=== PATIENT | male | born 1945 | race Caucasian/White ===

== ENCOUNTER 2018-04-21 16:20 | Observation (INO) | payer OTHER, MEDICARE ==
--- NOTE | 2018-04-21 16:43 | PDOC ---
History of Present Illness - General Chief Complaint: CVA/TIA Stated Complaint: RULE OUT CVA Time Seen by Provider: 04/21/18 16:36 - History of Present Illness Initial Comments: 04/21/18 16:43 Mr. Zen Mcfarland is a 72 yo male w/ pmh of DM and lymphoma (? followed by Dr. Miller) who presents for evaluation of 1 day history of confusion and slurred speech. Family reports they noted slurred speech last night however thought nothing of it. This morning they noticed worsening speech and confusion as he was trying to change the television channels with his recliner control. Patient was also found on the floor although he denies falling or any pain. EMS was called and patient was noted to have increasing slurred speech with left sided facial droop and left arm drip, however symptoms resolved prior to arrival and only slight facial droop remained. Patient back to baseline per family now. The patient denies chest pain, shortness of breath, headache and dizziness. Denies fever, chills, nausea, vomit, diarrhea and constipation. Denies dysuria, frequency, urgency and hematuria. Past History - Past Medical History Allergies/Adverse Reactions: Allergies Allergy/AdvReac Type Severity Reaction Status Date / Time No Known Allergies Allergy Unverified 04/21/18 18:07 Home Medications: Ambulatory Orders Aspirin [ASA -] 81 mg PO DAILY 04/21/18 Clonazepam 0.5 mg PO DAILY 04/21/18 Folic Acid 1 mg PO DAILY 04/21/18 Furosemide [Lasix] 40 mg PO DAILY 04/21/18 Hydrochlorothiazide [Hctz -] 25 mg PO DAILY 04/21/18 Nebivolol HCl [Bystolic] 10 mg PO DAILY 04/21/18 Omeprazole 40 mg PO BID 04/21/18 Sitagliptin Phos/Metformin HCl [Janumet 50-1,000 mg Tablet] 1 tab PO DAILY 04/21 Review of Systems - Review of Systems Comments:: 04/21/18 16:50 GENERAL/CONSTITUTIONAL: No fever or chills. No weakness. HEAD, EYES, EARS, NOSE AND THROAT: No change in vision. No ear pain or discharge. No sore throat. CARDIOVASCULAR: No chest pain or shortness of breath RESPIRATORY: No cough, wheezing, or hemoptysis. GASTROINTESTINAL: No nausea, vomiting, diarrhea or constipation. GENITOURINARY: No dysuria, frequency, or change in urination. MUSCULOSKELETAL: No joint or muscle swelling or pain. No neck or back pain. SKIN: No rash NEUROLOGIC: +Confusion, slurred speech, and facial droop as described. ENDOCRINE: No increased thirst. No abnormal weight change HEMATOLOGIC/LYMPHATIC: No anemia, easy bleeding, or history of blood clots. ALLERGIC/IMMUNOLOGIC: No hives or skin allergy. *Physical Exam - Physical Exam Comments: 04/21/18 16:50 GENERAL: Awake, alert, and fully oriented, in no acute distress HEAD: +Slight facial droop noted. No signs of trauma, normocephalic, atraumatic EYES: PERRLA, EOMI, sclera anicteric, conjunctiva clear ENT: Auricles normal inspection, hearing grossly normal, nares patent, oropharynx clear without exudates. Moist mucosa NECK: Normal ROM, supple, no lymphadenopathy, JVD, or masses LUNGS: No distress, speaks full sentences, clear to auscultation bilaterally HEART: Regular rate and rhythm, normal S1 and S2, no murmurs, rubs or gallops, peripheral pulses normal and equal bilaterally. ABDOMEN: Soft, nontender, normoactive bowel sounds. No guarding, no rebound. No masses EXTREMITIES: Normal inspection, Normal range of motion, no edema. No clubbing or cyanosis. NEUROLOGICAL: Cranial nerves II through XII grossly intact. Normal speech, normal gait, no focal sensorimotor deficits SKIN: Warm, Dry, normal turgor, no rashes or lesions noted. NIH Stroke Scale - Last Known Well Date/Time & Onset Date Last Known Well: 04/20/18 Time Last Known Well: 22:30 - Initial Evaluation Level of consciousness: Alert Ask patient the month and their age: Answers both correctly Ask patient to open & close eyes; make fist and let go: Obeys both correctly Best gaze (horizontal eye movement): Normal Visual field testing: No visual field loss Facial paresis (Show teeth/raise eyebrows/close eyes tight): Minor paralysis ( flattened nasolabial fold, asymmetry on smiling) Motor Function: Left Arm: Normal Motor Function: Right Arm: Normal (extends arm 90 (or 45) degrees for 10 seconds without drift Motor Function: Left Leg: Normal (extends leg 30 degrees for 5 seconds without drift) Motor Function: Right Leg: Normal (extends leg 30 degrees for 5 seconds without drift) Limb Ataxia: No ataxia Sensory(Use pinprick test arms,legs,trunk,face/side to side): Normal Best language (Describe picture, name items, read sentences): No Aphasia Dysarthria (read several words): Normal articulation Extinction and Inattention: No abnormality - Total Score NIH Stroke Scale Score: 1 tPA Exclusion checklist 3-4.5h - Time Elapsed Date last known well: 04/20/18 Time last known well: 22:30 Elaspsed time: Day(s) and 19 Hour(s) and 52 Minutes - Thrombolytic Therapy Candidate Is patient eligible for thrombolytic therapy: No - Exclusion Criteria 3-4.5 hr SBP greater than 185 or DBP greater than 110mmHg despite tx: No Recent IC/spinal surgery,head trauma or stroke<3mos.: No Hx IC hemorrhage, IC neoplasm, AV malformation or aneurysm: No Active internal bleeding: No Blding diathesis(low plt ct, inc PTT,INR>1.7 or use of NOAC): No Symptoms suggest subarachnoid hemorrhage: No CT demonstrates multilobar infarct(>1/3 cerebral hemiphere): No Arterial puncture at noncompressible site in previous 7 days: No Blood glucose concentration less than 50mg/dL (2.7mmol/L): No - Relative Exclusion Criteria 3-4.5 hr Life expectancy <1 yr or severe co-morbid illness: No : No Patient/family refused: No Rapid improvement: Yes Stroke severity too mild: Yes Recent acute NM (w/in previous 3 months): No Seizure at onset with postictal residual neuro impairments: No Major surgery or serious trauma w/in previous 14 days: No Recent GI or hemorrhage (w/in previous 21 days): No - Add'l Relative Exclusion 3-4.5 hr Age > 80: No Hx of both diabetes AND prior ischemic stroke: No Taking an oral anticoagulant regardless of INR: No NIHSS >25: No - Ineligibility reason(s) Reasons No tPA given: Outside of window - delayed arrival Critical Care Time/[facility] Note - Medical Decision Making Note: 04/21/18 17:16 Mr. Zaldivar is a 72 yo male w/ pmh as described who presents for evaluation of symptoms concerning for CVA vs. TIA. Patient reportedly back to baseline at evaluation however concern for TIA prompted admission for Neurological workup. Will continue with evaluation and admit for further workup. *DC/Admit/Observation/Transfer Diagnosis at time of Disposition: TIA (transient ischemic attack) - Discharge Dispostion Decision to Admit order: Yes - Referrals - Patient Instructions - Post Discharge Activity
--- NOTE | 2018-04-21 17:10 | PDOC ---
Attending Attestation - Resident Resident Name: Robe Gutierrez - ED Attending Attestation I have performed the following: I have examined & evaluated the patient, The case was reviewed & discussed with the resident, I agree w/resident's findings & plan, Exceptions are as noted - HPI HPI: 04/21/18 17:09 72 yo male developed slurred speech and left facial droop about 20 hours ago.The family feels he is back to baseline now - Physicial Exam PE: 04/22/18 01:33 wnwd 72 yo male who was confused YESTERDAY with left facial droop,slurred speech and confusion. 04/22/18 01:37 head ncat eyes oscar eomi neck supple,no jvd lungs cta b/l cvs [id number] abd nontender ext no pitting edema neuro axox3,motor strength 5/5, b/l, no extremity drift in arms or legs,no field cut, no neglect,sensation intact. Only mild left facial droop - Medical Decision Making 04/22/18 01:39 ct scan head :no bleed,no infarct,no mass, + cerebral atrophy ct scan c spine :no fracture,severe degenerative arthritis 04/22/18 01:40 IMP TIA ,pt admitted for further neurology eval and brain MRI
[2018-04-21] MEDS: SODIUM CHLORIDE 1,000 ML IV SCH (17:17)
[2018-04-21 17:59] LABS: BASO % 0.3 % (0-2.0); EOS % 3.2 % (0-4.5); HEMATOCRIT 36.7 % (35.4-49); HEMOGLOBIN 12.8 GM/dL (11.7-16.9); LYMPH % 24.8 % (8-40); MCH 31.7 pg (25.7-33.7); MCHC 34.8 g/dl (32.0-35.9); MEAN CELL VOLUME 90.9 fl (80-96); MEAN PLT VOLUME 9.9 fl (7.5-11.1); MONO % 13.6 % (3.8-10.2); NEUT % 58.1 % (42.8-82.8); PLATELET COUNT 59 K/MM3 (134-434); RBC 4.04 M/mm3 (4.00-5.60); RDW 14.4 % (11.9-15.9); WHITE BLOOD COUNT 3.1 K/mm3 (4.0-10.0)
[2018-04-21 18:19] LABS: INR 1.31 (0.83-1.09); PROTHROMBIN TIME (PATIENT) 15.5 SEC (9.7-13.0)
[2018-04-21 18:43] LABS: ALBUMIN 2.9 g/dl (3.4-5.0); ALK PHOS 150 U/L (45-117); ANION GAP 8 MMOL/L (8-16); BLOOD UREA NITROGEN 13 mg/dL (7-18); CALCIUM 8.4 mg/dL (8.5-10.1); CHLORIDE 106 mmol/L (98-107); CHOLESTEROL 142 mg/dL (50-200); CO2 26 mmol/L (21-32); CREATININE 0.8 mg/dL (0.55-1.3); GLUCOSE,RANDOM 149 mg/dL (74-106); HDL CHOLESTEROL 46 mg/dL (40-60); POTASSIUM 4.1 mmol/L (3.5-5.1); SGOT/AST 66 U/L (15-37); SGPT/ALT 35 U/L (13-61); SODIUM 141 mmol/L (136-145); TOT PROT 6.5 g/dl (6.4-8.2); TRIGLYCERIDES 132 mg/dL (0-150)
[2018-04-21 18:50] LABS: URINE APPEARANCE CLEAR; URINE BILIRUBIN NEGATIVE (<2.0 mg/dL); URINE COLOR YELLOW; URINE GLUCOSE (UA) NEGATIVE (NEGATIVE); URINE KETONE NEGATIVE (NEGATIVE); URINE LEUK ESTERASE NEGATIVE (NEGATIVE); URINE NITRITE NEGATIVE (NEGATIVE); URINE PROTEIN NEGATIVE (NEGATIVE)
[2018-04-21] MEDS ORDERED: SENNOSIDES 8.6MG TABLET (FP) PO PRN (21:53)
[2018-04-21] MEDS ORDERED: DOCUSATE SODIUM 100 MG CAPSULE (FP) PO PRN (21:53)
[2018-04-21] MEDS: NEBIVOLOL 10 MG TABLET (FP) PO SCH (23:19)
[2018-04-21] MEDS: INSULIN SLIDING SCALE (NOVOLOG) 1 VIAL SQ SCH (23:20)
[2018-04-21] MEDS: PANTOPRAZOLE 40 MG TABLET (FP) PO SCH (23:20)
--- NOTE | 2018-04-21 23:34 | HP ---
Admitting History and Physical - Primary Care Physician PCP: Fredy Goins - Admission Chief Complaint: Altered mental status History of Present Illness: 72 year old M with h/o HTN, DMII, Lymphoma (diagnosed in 2008, f/b Dr. Miller), present to ED at the urging of this family due to altered mental status. reports symptoms began overnight as mild confusion and slurred speech, however, by morning, pt was noted to be more altered associated with impaired gait and left sided facial droop. during the course of the day, the patient walked outside with and sustained a fall resulting in facial and knee injuries. The was unable to assist patient to standing position and flogged down a passerby to help him back into his house. His family took him into urgent care and pt was directed to ED with assistance from EMS for urgent evaluation. Pt was seen by neuro, however, he was not a TPA candidate due to being outside of therapeutic window. Vitals in ED: BP 171/82, Temp 97.0, HR 66bpm, RR 18. Head CT no evidence of acute pathology and C-spine CT with moderate-severe degenerative arthritis with no fracture or acute pathology. Patient now back to baseline and will be observed for 24hrs prior to d/c home. History Source: Patient, Family Member, Significant Other Limitations to Obtaining History: No Limitations - Past Medical History Cardiovascular: Yes: HTN Gastrointestinal: Yes: GERD Psych: Yes: Anxiety Musculoskeletal: Yes: Osteoarthritis Endocrine: Yes: Diabetes Mellitus - Past Surgical History Past Surgical History: Yes: Appendectomy, Cataract Removal Additional Past Surgical History: right rotator cuff repair - Smoking History Smoking history: Never smoked Have you smoked in the past 12 months: No - Alcohol/Substance Use Hx Alcohol Use: No History of Substance Use: reports: None - Social History Usual Living Arrangement: Yes: With Spouse ADL: Independent Occupation: retired History of Recent Travel: No Home Medications - Allergies Allergies/Adverse Reactions: Allergies Allergy/AdvReac Type Severity Reaction Status Date / Time No Known Allergies Allergy Unverified 04/21/18 18:07 - Home Medications Home Medications: Ambulatory Orders Aspirin [ASA -] 81 mg PO DAILY 04/21/18 Clonazepam 0.5 mg PO DAILY 04/21/18 Folic Acid 1 mg PO DAILY 04/21/18 Furosemide [Lasix] 40 mg PO DAILY 04/21/18 Hydrochlorothiazide [Hctz -] 25 mg PO DAILY 04/21/18 Nebivolol HCl [Bystolic] 10 mg PO DAILY 04/21/18 Omeprazole 40 mg PO BID 04/21/18 Sitagliptin Phos/Metformin HCl [Janumet 50-1,000 mg Tablet] 1 tab PO DAILY 04/21 Family Disease History - Family Disease History Other Family History: non-contributary Review of Systems - Review of Systems Constitutional: reports: No Symptoms Eyes: reports: No Symptoms HENT: reports: Mouth Swelling (hit upper lip d/t fall) Neck: reports: No Symptoms Cardiovascular: reports: No Symptoms Respiratory: reports: No Symptoms Gastrointestinal: reports: No Symptoms Genitourinary: reports: No Symptoms Breasts: reports: No Symptoms Reported Musculoskeletal: reports: No Symptoms Integumentary: reports: No Symptoms Neurological: reports: Change in Speech, Confusion, Dizziness, Incoordination, Unsteady Gait Endocrine: reports: No Symptoms Hematology/Lymphatic: reports: No Symptoms Psychiatric: reports: Anxiety Physical Examination Vital Signs: Vital Signs Temperature 97.0 F L 04/21/18 16:20 Pulse Rate 66 04/21/18 16:20 Respiratory Rate 18 04/21/18 16:20 Blood Pressure 171/82 H 04/21/18 16:20 O2 Sat by Pulse Oximetry (%) 100 04/21/18 16:20 Constitutional: Yes: Well Nourished, No Distress, Calm, Other Eyes: Yes: Conjunctiva Clear, PERRL HENT: Yes: Atraumatic, Normocephalic Neck: Yes: Supple, Trachea Midline Cardiovascular: Yes: Regular Rate and Rhythm Respiratory: Yes: Regular, CTA Bilaterally Gastrointestinal: Yes: Soft, Abdomen, Obese, Hypoactive Bowel Sounds ...Rectal Exam: Yes: Deferred Musculoskeletal: Yes: WNL Extremities: Yes: WNL Edema: No Peripheral Pulses WNL: Yes Peripheral Pulses: Left Radial: 2+, Right Radial: 2+, Left Doralis Pedis: 2+, Right Dorsalis Pedis: 2+ Integumentary: Yes: WNL Neurological: Yes: Alert, Oriented ...Motor Strength: WNL Psychiatric: Yes: Oriented Labs: CBC, BMP 04/21/18 16:50 04/21/18 16:50 Imaging - Results Cat Scan: Report Reviewed (Head CT 04/21 Impression: no evidence of acute pathology), Image Reviewed, Other (C-spine CT 04/21 Impression: moderate-severe degenerative arthritis with no fracture or acute pathology.) Problem List - Problems (1) DM type 2 (diabetes mellitus, type 2) Assessment/Plan: hold Janumet Start Insulin SS AC and qhs diabetic diet Code(s): E11.9 - TYPE 2 DIABETES MELLITUS WITHOUT COMPLICATIONS Qualifiers: Diabetes mellitus senior living insulin use: without long chain beamer use (2) GERD (gastroesophageal reflux disease) Assessment/Plan: protonix daily Code(s): K21.9 - GASTRO-ESOPHAGEAL REFLUX DISEASE WITHOUT ESOPHAGITIS (3) HTN (hypertension) Assessment/Plan: HCTZ 25mg daily bystolic 10mg qhs lasix 40mg daily f/u echo results Code(s): I10 - ESSENTIAL (PRIMARY) HYPERTENSION (4) DVT prophylaxis Assessment/Plan: heparin SC TID c/w ASA 81mg OOB to chair SCDs Code(s): NCT5239 - (5) TIA (transient ischemic attack) Assessment/Plan: head CT negative and pt back to baseline observe overnight and d/c home in AM if stable follow up carotid doppler studies pt should f/u with neuro and PCP outpt Code(s): G45.9 - TRANSIENT CEREBRAL ISCHEMIC ATTACK, UNSPECIFIED Assessment/Plan DISPO: Full code Bowel regimen with senna and colace Visit type - Emergency Visit Emergency Visit: Yes ED Registration Date: 04/21/18 Care time: The patient presented to the Emergency Department on the above date and was hospitalized for further evaluation of their emergent condition. - New Patient This patient is new to me today: Yes Date on this admission: 04/22/18 - Critical Care Critical Care patient: No
[2018-04-22 01:20] VITALS: BMI 34.7
[2018-04-22] MEDS: ACETAMINOPHEN 325 MG TABLET (FP) PO PRN ×2 (05:17→20:52)
[2018-04-22] MEDS: HEPARIN NA (PORCINE) 5,000 UNITS/ML 1ML VIAL SQ SCH ×3 (05:18→21:01)
[2018-04-22 07:11] LABS: ANION GAP 8 MMOL/L (8-16); BLOOD UREA NITROGEN 12 mg/dL (7-18); CALCIUM 8.6 mg/dL (8.5-10.1); CHLORIDE 110 mmol/L (98-107); CO2 27 mmol/L (21-32); CREATININE 0.8 mg/dL (0.55-1.3); GLUCOSE,RANDOM 119 mg/dL (74-106); MAGNESIUM 1.7 mg/dL (1.8-2.4); PHOSPHOROUS 3.8 mg/dL (2.5-4.9); POTASSIUM 4.1 mmol/L (3.5-5.1); SODIUM 144 mmol/L (136-145)
[2018-04-22] MEDS: INSULIN SLIDING SCALE (NOVOLOG) 1 VIAL SQ SCH ×4 (07:55→21:02)
[2018-04-22] MEDS: ASPIRIN 81 MG CHEWABLE TABLETS PO SCH (09:22)
[2018-04-22] MEDS: HYDROCHLOROTHIAZIDE 25 MG TABLET (FP) PO SCH (09:22)
[2018-04-22] MEDS: PANTOPRAZOLE 40 MG TABLET (FP) PO SCH ×2 (09:22→21:01)
[2018-04-22] MEDS: FOLIC ACID 1 MG TABLET (FP) PO SCH (09:22)
[2018-04-22] MEDS: FUROSEMIDE 40 MG TABLET (FP) PO SCH (09:22)
--- NOTE | 2018-04-22 10:53 | CON.NEURO ---
Consult Consult Specialty:: Neurology Referred by:: Dr. Kali Arreola Reason for Consultation:: Stroke vs. TIA - History of Present Illness Chief Complaint: Altered speech and facial droop History of Present Illness: Daughter called home yesterday and spoke to her father, and found speech difficult to understand. She says that his words were difficult to understand but that they were words, and that he seemed to understand and answer her appropriately. She asked him to read his medication bottle to her and he had difficulty. He then fell down some stairs outside and hit his face and they noticed some swelling vs. drooping of the left side of the face. They think that he's better but daughter does acknowledge that his face is not quite back to baseline. He himself denies any problems, is cantankerous (baseline), and wants to leave. - History Source History Provided By: Patient, Family Member, Medical Record Limitations to Obtaining History: Poor Historian - Past Medical History Cardio/Vascular: Yes: HTN Gastrointestinal: Yes: GERD Psych: Yes: Anxiety Musculoskeletal: Yes: Osteoarthritis Endocrine: Yes: Diabetes Mellitus - Past Surgical History Past Surgical History: Yes: Appendectomy, Cataract Removal - Alcohol/Substance Use Hx Alcohol Use: No History of Substance Use: reports: None - Smoking History Smoking history: Never smoked Have you smoked in the past 12 months: No - Social History Usual Living Arrangement: With Spouse ADL: Independent Occupation: retired History of Recent Travel: No Home Medications - Allergies Allergies/Adverse Reactions: Allergies Allergy/AdvReac Type Severity Reaction Status Date / Time No Known Allergies Allergy Unverified 04/21/18 18:07 - Home Medications Home Medications: Ambulatory Orders Aspirin [ASA -] 81 mg PO DAILY 04/21/18 Clonazepam 0.5 mg PO DAILY 04/21/18 Folic Acid 1 mg PO DAILY 04/21/18 Furosemide [Lasix] 40 mg PO DAILY 04/21/18 Hydrochlorothiazide [Hctz -] 25 mg PO DAILY 04/21/18 Nebivolol HCl [Bystolic] 10 mg PO DAILY 04/21/18 Omeprazole 40 mg PO BID 04/21/18 Sitagliptin Phos/Metformin HCl [Janumet 50-1,000 mg Tablet] 1 tab PO DAILY 04/21 Family Disease History - Family Disease History Other Family History: non-contributary Physical Exam-Neuro Vital Signs: Vital Signs Temperature 98.5 F 04/22/18 08:59 Pulse Rate 69 04/22/18 08:59 Respiratory Rate 18 04/22/18 08:59 Blood Pressure 142/73 04/22/18 08:59 O2 Sat by Pulse Oximetry (%) 99 04/22/18 08:43 Constitutional: Yes: Well Nourished, Anxious Labs: CBC, BMP 04/21/18 16:50 04/22/18 06:00 INR, PTT INR 1.31 (0.83-1.09) H 04/21/18 16:50 - Neuro Exam Level Of Consciousness: Yes: Alert, Oriented to Person, Oriented to Place, Oriented to Time Eyes: Yes: YVON Speech: WNL Cranial Nerves II-XII Intact: No (slightly decreased left nasolabial fold) DTR's: 0 Left Achilles, 0 Right Achilles, 2+ Left Bicep, 2+ Right Bicep, 2+ Left Tricep, 2+ Right Tricep, 2+ Left Brachioradialis, 2+ Right Brachioradialis Babinski: Absent Response to light touch: Normal Response to pain prick: Normal Motor Strength: 5/5: Left Arm, Right Arm, Left Leg, Right Leg (slight left pronator drift) Gait: Normal NIH Stroke Scale - Initial Evaluation Level of consciousness: Alert Ask patient the month and their age: Answers both correctly Ask patient to open & close eyes; make fist and let go: Obeys both correctly Best gaze (horizontal eye movement): Normal Visual field testing: No visual field loss Facial paresis (Show teeth/raise eyebrows/close eyes tight): Minor paralysis ( flattened nasolabial fold, asymmetry on smiling) Motor Function: Left Arm: Normal Motor Function: Right Arm: Normal (extends arm 90 (or 45) degrees for 10 seconds without drift Motor Function: Left Leg: Normal (extends leg 30 degrees for 5 seconds without drift) Motor Function: Right Leg: Normal (extends leg 30 degrees for 5 seconds without drift) Limb Ataxia: No ataxia Sensory(Use pinprick test arms,legs,trunk,face/side to side): Normal Best language (Describe picture, name items, read sentences): No Aphasia Dysarthria (read several words): Normal articulation Extinction and Inattention: No abnormality - Total Score NIH Stroke Scale Score: 1 Imaging - Results Cat Scan: Report Reviewed, Image Reviewed (CT scan brain, mild atrophy, no acute stroke, cervical spine, degenerative disease.) Assessment/Plan Stroke vs TIA. I actually think that he appears to have persistent left sided weakness though its very mild and subtle. He needs MRI brain and if indeed he had a stroke, would consider changing aspirin to Plavix. Would also get carotid dopplers, and if not done by his cook italian style food recently, echocardiogram and holter monitor. He is quite anxious and will not tolerate MRI without sedation.
[2018-04-22] MEDS ORDERED: ALPRAZolam 0.25 MG TABLET PO SCH (11:00)
[2018-04-22] MEDS ORDERED: clonazePAM 0.5 MG TABLET PO PRN (11:50)
--- NOTE | 2018-04-22 11:51 | PN ---
Progress Note (short form) - Note Progress Note: Family at bedside Events noted No complaints Very anxious No distress Selected Entries 04/22/18 08:59 Temperature 98.5 F Pulse Rate 69 Respiratory 18 Rate Blood Pressure 142/73 Laboratory Tests 04/22/18 04/22/18 06:00 06:00 Sodium 144 Potassium 4.1 Chloride 110 H Carbon Dioxide 27 Anion Gap 8 BUN 12 Creatinine 0.8 Random Glucose 119 H Hemoglobin A1c % 7.4 H Calcium 8.6 Phosphorus 3.8 Magnesium 1.7 L TSH 2.20 D S1 s2 RRR Chin ecchymosis Lungs clear Abd- soft, NT No edema A/P TIA r/o CVA HTN -- MRI today-- give ativan prior to the test echo Carotid doppler telemetry Neurology patrick noted he has an appointment with Field Support Rep this Saturday
--- NOTE | 2018-04-22 12:02 | CONSULT ---
Admitting History and Physical - Primary Care Physician PCP: Mee Quezada - Admission History Source: Patient, Family Member Limitations to Obtaining History: No Limitations - Past Medical History Cardiovascular: Yes: HTN Gastrointestinal: Yes: GERD Psych: Yes: Anxiety Musculoskeletal: Yes: Osteoarthritis Endocrine: Yes: Diabetes Mellitus - Past Surgical History Past Surgical History: Yes: Appendectomy, Cataract Removal Additional Past Surgical History: right rotator cuff repair - Smoking History Smoking history: Never smoked Have you smoked in the past 12 months: No - Alcohol/Substance Use Hx Alcohol Use: No History of Substance Use: reports: None - Social History ADL: Independent Occupation: retired History of Recent Travel: No History - Admission Reason For Visit: TRANSIENT ISCHEMIA ATTACK - Diagnostics X-ray: Report Reviewed CT Scan: Report Reviewed MRI: Pending - General Mental Status: Alert and Oriented, Awake and Alert, Anxious Attention: Intact Ability to Follow Directions: Good Head/Neck Control: WFL - Hearing Hearing: Normal Hearing Aide: No With Patient: No Speech Evaluation - Communication Primary Language: LAO Communication: Yes: Within Normal Limits Oral Expression Ability: Yes: No Impairment - Speech Production Able to Make Needs Known: Yes: WNL Intelligibility: Yes: WNL - Speech Characteristics Voice Loudness: Normal Voice Pitch: Yes: Normal Voice Phonatory-based Quality: Yes: Normal Speech Pattern: Normal Speech Clarity: < 100% Nasal Resonance: Normal Articulation: Yes: Precise Rate of Speech: Intact - Language/Auditory Comprehension Follows: Yes: 2 Stage Simple Commands - Language/Verbal Expression Able to Respond to Simple Queries: Yes: WNL Able to Communicate Wants and Needs: Yes: WNL Functional Communication Status: Yes: WNL Attention: Yes: Intact - Swallow Evaluation/Bedside Assessment Current Nutritional Intake: Regular, Thin Liquids Oral Secretions: Yes: WFL Dentition: Yes: Adequate Facial Symmetry at Rest: Facial Droop Left (left side of lip swollen) Against Resistance Opening: Normal Against Resistance Closing: Normal Pucker Lips: Normal Smile: Normal Lingual Movement: Normal, Symmetric Lingual Speed of Movement: Normal Lingual Movement Strgth Against Opposition: Normal Lingual Movement Characteristics: Normal Velopharyngeal Movement: Normal Laryngeal Elevation: WFL Laryngeal Movement: Able to Palpate Rate of Intake: WFL Bolus Size: WFL Labial Seal: WFL Chewing: WFL Oral Prep Time: WFL A-P Transit: WFL Pocketing: None Timing of Swallow: WFL Coughing/Throat Clear: No Change in Voice: No Recommendations - Speech Evaluation, Impression/Plan Impression: Pt with reported impaired intelligibility/Dyarthria? with spontaneous recovery. Swallowing intact. Oriented.Language intact. Pending MRI - r/o CVA/TIA - Dysphagia Impressions/Plan Swallowing Skills: WFL Dysphagia Impressions: No Impairment *Silent aspiration: cannot be R/O at bedside - Recommendations Diet Consistency: Regular Medication Administration: Whole with water Liquids: Thin Liquids
[2018-04-22] MEDS ORDERED: LORazepam 2 MG/ML SDV VIAL IVPUSH ONE (12:15)
--- NOTE | 2018-04-22 12:34 | ECHO ---
Name: POLO PADILLA Exam:Adult Echocardiogram Study Date: 04/22/2018 08:07 AM Age: 72 yrs Reason For Study: CVA Height: 72 in Weight: 260 lb BSA: 2.4 m2 MMode/2D Measurements & Calculations IVSd: 1.3 cm Ao root diam: 3.4 cm LVIDd: 5.4 cm LA dimension: 4.0 cm LVIDs: 3.1 cm LVPWd: 1.2 cm EDV(Teich): 143.8 ml LVOT diam: 2.0 cm ESV(Teich): 38.2 ml LAV (MOD-bp): 64.4 ml Doppler Measurements & Calculations MV E max miladys: 127.0 cm/sec TR max miladys: 240.3 cm/sec MV A max miladys: 76.6 cm/sec TR max P.1 mmHg MV E/A: 1.7 MV dec time: 0.18 sec Med Peak E' Miladys: 5.7 cm/sec Med E/e': 22.4 Lat Peak E' Miladys: 9.1 cm/sec Lat E/e': 13.9 Procedure A two-dimensional transthoracic echocardiogram with color flow and Doppler was performed. The patient was in normal sinus rhythm during the exam. Left Ventricle The left ventricle is normal in size. Left ventricular systolic function is normal. Ejection Fraction = 60%. Right Ventricle The right ventricle is normal size. The right ventricular systolic function is normal. Atria The left atrium is mildly dilated. Right atrial size is normal. Mitral Valve There is mild mitral annular calcification. There is mild mitral regurgitation. Tricuspid Valve The tricuspid valve is normal. There is mild tricuspid regurgitation. Aortic Valve There is mild aortic sclerosis.;. The aortic valve is not well visualized. The aortic valve opens wel l. No aortic regurgitation is present. Pulmonic Valve The pulmonic valve is not well seen, but is grossly normal. There is no pulmonic valvular regurgitati on. Great Vessels The aortic root is normal size. Pericardium/Pleura There is no pericardial effusion. Interpretation Summary Left ventricular systolic function is normal. The right ventricular systolic function is normal. The left atrium is mildly dilated. There is mild mitral annular calcification. There is mild mitral regurgitation. There is mild tricuspid regurgitation. There is mild aortic sclerosis.; The aortic valve opens well. There is no pericardial effusion. MD Freeman Hernandez 04/22/2018 12:34 PM
--- NOTE | 2018-04-22 12:58 | EKG ---
Test Reason : Blood Pressure : / mmHG Vent. Rate : 065 BPM Atrial Rate : 065 BPM P-R Int : 166 ms QRS Dur : 144 ms QT Int : 492 ms P-R-T Axes : 044 012 008 degrees QTc Int : 511 ms NORMAL SINUS RHYTHM RIGHT BUNDLE BRANCH BLOCK ABNORMAL ECG NO PREVIOUS ECGS AVAILABLE Confirmed by Morteza Manuel ([id number]) on 04/22/2018 12:57:35 PM Referred By: Confirmed By:Morteza Manuel
[2018-04-22] MEDS: SODIUM CHLORIDE 1,000 ML IV SCH (18:08)
[2018-04-22] MEDS ORDERED: LORazepam 2 MG/ML SDV VIAL ONE (19:16)
[2018-04-22] MEDS: NEBIVOLOL 10 MG TABLET (FP) PO SCH (21:01)
[2018-04-22] MEDS ORDERED: ATORVASTATIN CA 10 MG TABLET (FP) PO SCH (22:00)
[2018-04-23] MEDS: HEPARIN NA (PORCINE) 5,000 UNITS/ML 1ML VIAL SQ SCH (06:19)
[2018-04-23 09:37] VITALS: BP 136/67; PULSE 68; TEMP 98.2
[2018-04-23] MEDS: PANTOPRAZOLE 40 MG TABLET (FP) PO SCH (09:39)
[2018-04-23] MEDS: HYDROCHLOROTHIAZIDE 25 MG TABLET (FP) PO SCH (09:39)
[2018-04-23] MEDS: ASPIRIN 81 MG CHEWABLE TABLETS PO SCH (09:39)
[2018-04-23] MEDS: FUROSEMIDE 40 MG TABLET (FP) PO SCH (09:39)
[2018-04-23] MEDS: FOLIC ACID 1 MG TABLET (FP) PO SCH (09:39)
--- NOTE | 2018-04-23 11:41 | DS ---
Physical Examination Vital Signs: Vital Signs Temperature 98.2 F 04/23/18 09:36 Pulse Rate 68 04/23/18 09:36 Respiratory Rate 20 04/23/18 09:36 Blood Pressure 136/67 04/23/18 09:36 O2 Sat by Pulse Oximetry (%) 96 04/23/18 09:45 Constitutional: Yes: No Distress, Calm Cardiovascular: Yes: Regular Rate and Rhythm Respiratory: Yes: CTA Bilaterally Gastrointestinal: Yes: Normal Bowel Sounds, Soft, Abdomen, Obese. No: Tenderness Edema: No Labs: CBC, BMP 04/21/18 16:50 04/22/18 06:00 Discharge Summary Reason For Visit: TRANSIENT ISCHEMIA ATTACK Current Active Problems DM type 2 (diabetes mellitus, type 2) (Acute) DVT prophylaxis (Acute) GERD (gastroesophageal reflux disease) (Acute) HTN (hypertension) (Acute) TIA (transient ischemic attack) (Acute) Hospital Course: Admitted for slurred speech, confusion, facial droop which resolved on its own He was admitted to R/o CVA Seen by Neurology-- CT head negative MRI-- negative Carotid doppler negative Echo normal LVSF Started on Statins Pt is stable to be discharged home, he has follow up with cardiology this Saturday and trevon be seeing his PMD next week Condition: Improved - Instructions Disposition: HOME - Home Medications Comprehensive Discharge Medication List: Ambulatory Orders Aspirin [ASA -] 81 mg PO DAILY 04/21/18 Clonazepam 0.5 mg PO DAILY 04/21/18 Folic Acid 1 mg PO DAILY 04/21/18 Furosemide [Lasix] 40 mg PO DAILY 04/21/18 Hydrochlorothiazide [Hctz -] 25 mg PO DAILY 04/21/18 Nebivolol HCl [Bystolic] 10 mg PO DAILY 04/21/18 Omeprazole 40 mg PO BID 04/21/18 Sitagliptin Phos/Metformin HCl [Janumet 50-1,000 mg Tablet] 1 tab PO DAILY 04/21
== END 2018-04-23 12:31 | disposition home or self-care (01) ==
LOC: JER 16:20 → INTOOBSV 17:18 → JERBED 17:18 → J4S 20:01
PROVIDERS: ADMIT Internal Medicine; ATTEND Internal Medicine
PROC: 3E013GC Introduction of Other Therapeutic Substance into Subcutaneous Tissue, Percutaneous Approach (ICD-10-PCS; principal; 2018-04-21)
DX: G45.9 Transient cerebral ischemic attack, unspecified (principal); I10 Essential (primary) hypertension; K21.9 Gastro-esophageal reflux disease without esophagitis; E11.9 Type 2 diabetes mellitus without complications; Z79.84 Long term (current) use of oral hypoglycemic drugs; M19.90 Unspecified osteoarthritis, unspecified site; F41.9 Anxiety disorder, unspecified; Z85.72 Personal history of non-Hodgkin lymphomas
CPT/HCPCS: 36415; 70450-TC; 70551-TC; 72125-TC; 80048; 80053; 81003; 82465; 82550; 82553; 82962; 83036; 83718; 83721; 83735; 84100; 84443; 84478; 84484; 85025; 85610; 86850; 86900; 86901; 93005; 93010; 93306-TC; 93880-TC; 96372; 99283-25; G0378; J1644; J7030

== ENCOUNTER 2018-07-07 09:46 | Inpatient (IN) | payer OTHER, MEDICARE ==
--- NOTE | 2018-07-07 12:35 | PDOC ---
History of Present Illness - General History Source: Patient, Family Exam Limitations: No Limitations - History of Present Illness Initial Comments: 07/07/18 12:37 The patient is a 72 year old male with a significant PMH of DM, HTN, MS s/p stents, TIA, and low grade lymphoma who presents to the emergency department with slurred speech, confusion, and difficulty walking since 1PM yesterday. Patients family noticed the patient was having difficulty getting dressed, was unable to put his shoes on, and perform simple functions. Family is complaining the patient is still having slurred speech. Patient is disoriented to date at baseline. Patient is on a baby aspirin daily, but denies any other anticoagulants. Patient denies alcohol use. Denies history of UTIs. The patient denies chest pain, shortness of breath, headache and dizziness. Denies fever, chills, nausea, vomit, diarrhea and constipation. Denies dysuria, frequency, urgency and hematuria. Allergies: NKA Past surgical history: stents Social history: No reported alcohol, drug or cigarette use. <Cindy Harding - Last Filed: 07/07/18 14:30> <Anuradha Darling - Last Filed: 07/07/18 14:36> - General Chief Complaint: Altered Mental Status Stated Complaint: SENT BY PCP Time Seen by Provider: 07/07/18 10:26 Past History <Cindy Harding - Last Filed: 07/07/18 14:30> - Past Medical History Anemia: Yes (thrombocytopenia) CVA: Yes (TIA) COPD: No CHF: No Diabetes: Yes GI Disorders: Yes (GERD, gastritiris, hiatal herniz, elevated liver enzymes) HTN: Yes Psychiatric Problems: Yes (anxiety) Seizures: Yes - Surgical History Cholecystectomy: No Lung Surgery: No - Immunization History Immunization Up to Date: No - Suicide/Smoking/Psychosocial Hx Smoking History: Never smoked Have you smoked in the past 12 months: No Information on smoking cessation initiated: No Hx Alcohol Use: No Drug/Substance Use Hx: No Substance Use Type: None Hx Substance Use Treatment: No <Anuradha Darling - Last Filed: 07/07/18 14:36> - Past Medical History Allergies/Adverse Reactions: Allergies Allergy/AdvReac Type Severity Reaction Status Date / Time No Known Allergies Allergy Unverified 04/21/18 18:07 Home Medications: Ambulatory Orders Aspirin [ASA -] 81 mg PO DAILY 04/21/18 Clonazepam 0.5 mg PO DAILY 04/21/18 Folic Acid 1 mg PO DAILY 04/21/18 Furosemide [Lasix] 40 mg PO DAILY 04/21/18 Hydrochlorothiazide [Hctz -] 25 mg PO DAILY 04/21/18 Nebivolol HCl [Bystolic] 10 mg PO DAILY 04/21/18 Omeprazole 40 mg PO BID 04/21/18 Sitagliptin Phos/Metformin HCl [Janumet 50-1,000 mg Tablet] 1 tab PO DAILY 04/21 Atorvastatin Ca [Lipitor] 10 mg PO HS #30 tablet 04/23/18 Atorvastatin Ca [Lipitor] 10 mg PO HS #30 tablet 04/23/18 Review of Systems - Review of Systems Able to Perform ROS?: Yes Comments:: 07/07/18 12:39 ADULT ROS GENERAL/CONSTITUTIONAL: No fever or chills. No weakness. HEAD, EYES, EARS, NOSE AND THROAT: No change in vision. No ear pain or discharge. No sore throat. CARDIOVASCULAR: No chest pain or shortness of breath. RESPIRATORY: No cough, wheezing, or hemoptysis. GASTROINTESTINAL: No nausea, vomiting, diarrhea or constipation. GENITOURINARY: No dysuria, frequency, or change in urination. MUSCULOSKELETAL: No joint or muscle swelling or pain. No neck or back pain. SKIN: No rash NEUROLOGIC: No headache, vertigo, loss of consciousness, or change in strength/ sensation. (+) slurred speech. ENDOCRINE: No increased thirst. No abnormal weight change. HEMATOLOGIC/LYMPHATIC: No anemia, easy bleeding, or history of blood clots. ALLERGIC/IMMUNOLOGIC: No hives or skin allergy. <Cindy Harding - Last Filed: 07/07/18 14:30> *Physical Exam - Vital Signs Last Vital Signs Temp Pulse Resp BP Pulse Ox 98.4 F 74 16 159/57 L 97 07/07/18 09:52 07/07/18 09:52 07/07/18 09:52 07/07/18 09:52 07/07/18 09:52 - Physical Exam Comments: 07/07/18 12:39 ADULT EXAM GENERAL: Awake, alert, and oriented x2. In no acute distress HEAD: No signs of trauma EYES: PERRLA, EOMI, sclera anicteric, conjunctiva clear ENT: Auricles normal inspection, hearing grossly normal, nares patent. Moist mucosa NECK: Normal ROM, supple, no lymphadenopathy, JVD, or masses LUNGS: Breath sounds equal, clear to auscultation bilaterally. No wheezes, and no crackles HEART: Regular rate and rhythm, normal S1 and S2, no murmurs, rubs or gallops ABDOMEN: Soft, nontender, normoactive bowel sounds. No guarding, no rebound. No masses EXTREMITIES: Normal range of motion, no edema. No erythema or tenderness. DP/PT pulses 2+ and symmetric. Warm and well perfused. NEUROLOGICAL: (+) 5/5 strength throughout. (+) Difficulty with finger to nose on the right. (+) Speech is slurred. SKIN: Warm, Dry, normal turgor, no rashes or lesions noted. <Cindy Harding - Last Filed: 07/07/18 14:30> - Vital Signs Last Vital Signs Temp Pulse Resp BP Pulse Ox 98.4 F 74 16 159/57 L 97 07/07/18 09:52 07/07/18 09:52 07/07/18 09:52 07/07/18 09:52 07/07/18 09:52 <Anuradha Darling - Last Filed: 07/07/18 14:36> Moderate Sedation - Procedure Monitoring Vital Signs: Procedure Monitoring Vital Signs Temperature 98.4 F 07/07/18 09:52 Pulse Rate 74 07/07/18 09:52 Respiratory Rate 16 07/07/18 09:52 Blood Pressure 159/57 L 07/07/18 09:52 O2 Sat by Pulse Oximetry (%) 97 07/07/18 09:52 <Cindy Harding - Last Filed: 07/07/18 14:30> - Procedure Monitoring Vital Signs: Procedure Monitoring Vital Signs Temperature 98.4 F 07/07/18 09:52 Pulse Rate 74 07/07/18 09:52 Respiratory Rate 16 07/07/18 09:52 Blood Pressure 159/57 L 07/07/18 09:52 O2 Sat by Pulse Oximetry (%) 97 07/07/18 09:52 <Anuradha Darling - Last Filed: 07/07/18 14:36> ED Treatment Course - LABORATORY CBC & Chemistry Diagram: 07/07/18 12:30 07/07/18 12:20 <Cindy Harding - Last Filed: 07/07/18 14:30> - LABORATORY CBC & Chemistry Diagram: 07/07/18 12:30 07/07/18 12:20 - RADIOLOGY Radiology Studies Ordered: Category Date Time Status HEAD CT (STROKE) [CT] Stat CT Scan 07/07/18 11:08 Ordered CHEST PA & LAT [RAD] Stat Radiology 07/07/18 11:09 Ordered <Anuradha Darling - Last Filed: 07/07/18 14:36> Medical Decision Making - Medical Decision Making 07/07/28 14:[address] Arreola. 07/07/28 12:29 Paged neurology. 07/07/18 14:30 Case d/w Dr. Be, neurology. <Cindy Harding - Last Filed: 07/07/18 14:30> - Medical Decision Making 07/07/18 12:32 72 yo male h/o cad, htn, tia, DM stents, lymphoma here with AMS. per family pt had slurred speech yesterday around 1 pm. difficulty putting on shoes and getting dressed, doing simple tasks . confused. no f/c no cough no fall no c/o chest pain. per family drinks 3 drinks / day. usually sister give him his meds , on ambien and klonopin. on exam pt strength symmetric, CN intact, speech slurred. alert oriented x 2. disoriented toyear. dysmetria to right ,. gait not tested. differential med side effect. infection such as uti, pna. cva ich, electrolyte abnormality. plan labs ekg ua cxr ct head. will likley require nuero eval. and admission r/o cva. 07/07/18 14:35 d/w dr arreola. will admit pt. d/w dr be, who will see pt for nuerology in Ed. recommend MRI. also pt with thrombocytopenia. has been that low for some time. will likely continue aspirin <Anuradha Darling - Last Filed: 07/07/18 14:36> *DC/Admit/Observation/Transfer - Attestations Scribe Attestion: 07/07/18 12:40 Documentation prepared by Cindy Harding, acting as medical care manager for Anuradha Darling MD. <Cindy Harding - Last Filed: 07/07/18 14:30> - Discharge Dispostion Decision to Admit order: Yes <Anuradha Darling - Last Filed: 07/07/18 14:36> Diagnosis at time of Disposition: Altered mental status - Discharge Dispostion Condition at time of disposition: Stable
[2018-07-07 13:03] LABS: BASO % 0.5 % (0-2.0); EOS % 2.1 % (0-4.5); HEMATOCRIT 36.8 % (35.4-49); HEMOGLOBIN 12.8 GM/dL (11.7-16.9); LYMPH % 24.4 % (8-40); MCH 31.7 pg (25.7-33.7); MCHC 34.9 g/dl (32.0-35.9); MEAN CELL VOLUME 90.8 fl (80-96); MEAN PLT VOLUME 9.2 fl (7.5-11.1); MONO % 11.4 % (3.8-10.2); NEUT % 61.6 % (42.8-82.8); PLATELET COUNT 58 K/MM3 (134-434); RBC 4.05 M/mm3 (4.00-5.60); RDW 14.9 % (11.9-15.9); WHITE BLOOD COUNT 4.8 K/mm3 (4.0-10.0)
[2018-07-07 13:28] LABS: ALBUMIN 3.3 g/dl (3.4-5.0); ALK PHOS 153 U/L (45-117); ANION GAP 6 MMOL/L (8-16); BILIRUBIN,TOTAL 1.3 mg/dL (0.2-1); BLOOD UREA NITROGEN 20 mg/dL (7-18); CHLORIDE 106 mmol/L (98-107); CO2 31 mmol/L (21-32); CREATININE 1.3 mg/dL (0.55-1.3); GLUCOSE,RANDOM 128 mg/dL (74-106); POTASSIUM 3.5 mmol/L (3.5-5.1); SGOT/AST 63 U/L (15-37); SGPT/ALT 40 U/L (13-61); SODIUM 143 mmol/L (136-145); TOT PROT 7.1 g/dl (6.4-8.2)
[2018-07-07 18:34] LABS: URINE APPEARANCE CLEAR; URINE BILIRUBIN NEGATIVE (<2.0 mg/dL); URINE COLOR YELLOW; URINE GLUCOSE (UA) NEGATIVE (NEGATIVE); URINE KETONE NEGATIVE (NEGATIVE); URINE LEUK ESTERASE NEGATIVE (NEGATIVE); URINE NITRITE NEGATIVE (NEGATIVE); URINE PROTEIN NEGATIVE (NEGATIVE)
[2018-07-07] MEDS ORDERED: FUROSEMIDE 40 MG TABLET (FP) PO ONE (19:29)
[2018-07-07] MEDS ORDERED: ASPIRIN 81 MG CHEWABLE TABLETS PO ONE (19:30)
[2018-07-07] MEDS ORDERED: METOLAZONE 2.5 MG TABLET (FP) PO ONE (19:31)
[2018-07-07] MEDS ORDERED: GLIMEPIRIDE 4 MG TABLET (FP) PO ONE (19:33)
[2018-07-07] MEDS ORDERED: sitaGLIPtin PHOSPHATE 50 MG TABLET PO ONE (19:33)
[2018-07-07] MEDS ORDERED: ASPIRIN 81 MG CHEWABLE TABLETS ONE (19:40)
[2018-07-07] MEDS ORDERED: FUROSEMIDE 40 MG TABLET (FP) ONE (19:41)
[2018-07-07] MEDS ORDERED: NEBIVOLOL 10 MG TABLET (FP) PO SCH (19:45)
[2018-07-07 19:48] LABS: INR 1.34 (0.83-1.09); PROTHROMBIN TIME (PATIENT) 15.8 SEC (9.7-13.0)
[2018-07-07] MEDS: ATORVASTATIN CA 20 MG TABLET (FP) PO SCH (21:00)
[2018-07-07] MEDS ORDERED: ATORVASTATIN CA 10 MG TABLET (FP) ONE (21:00)
--- NOTE | 2018-07-07 21:23 | EKG ---
Test Reason : Blood Pressure : / mmHG Vent. Rate : 076 BPM Atrial Rate : 076 BPM P-R Int : 164 ms QRS Dur : 144 ms QT Int : 476 ms P-R-T Axes : 070 -12 001 degrees QTc Int : 535 ms NORMAL SINUS RHYTHM RIGHT BUNDLE BRANCH BLOCK ABNORMAL ECG WHEN COMPARED WITH ECG OF 21-APR-2018 19:27, NO SIGNIFICANT CHANGE WAS FOUND Confirmed by PRAVIN LAN MD ([id number]) on 07/07/2018 9:23:15 PM Referred By: Confirmed By:PRAVIN LAN MD
[2018-07-07] MEDS ORDERED: clonazePAM 0.5 MG TABLET PO ONE (21:31)
--- NOTE | 2018-07-07 21:57 | CON.NEURO ---
Consult Consult Specialty:: NEUROLOGY-SHASHI SUÁREZ - History of Present Illness History of Present Illness: The patient is a 72 year old male with a significant PMH of DM, HTN, AR s/p stents, TIA, and low grade lymphoma who presents to the emergency department with slurred speech, confusion, and difficulty walking since 1PM yesterday. Patients family noticed the patient was having difficulty getting dressed, was unable to put his shoes on, and perform simple functions. Family is complaining the patient is still having slurred speech. Patient is disoriented to date at baseline. Patient is on a baby aspirin daily, but denies any other anticoagulants. Patient denies alcohol use. Denies history of UTIs. Above symptoms have improved since this morning but his minimal word finding difficulty persists as per kathyos but he is much better now mental status wilk[place]. CT head reported without acute abn. - Past Medical History Cardio/Vascular: Yes: HTN Gastrointestinal: Yes: GERD Psych: Yes: Anxiety Musculoskeletal: Yes: Osteoarthritis Endocrine: Yes: Diabetes Mellitus - Past Surgical History Past Surgical History: Yes: Appendectomy, Cataract Removal - Alcohol/Substance Use Hx Alcohol Use: No History of Substance Use: reports: None - Smoking History Smoking history: Never smoked Have you smoked in the past 12 months: No - Social History Usual Living Arrangement: With Spouse ADL: Independent Occupation: retired History of Recent Travel: No Home Medications - Allergies Allergies/Adverse Reactions: Allergies Allergy/AdvReac Type Severity Reaction Status Date / Time No Known Allergies Allergy Unverified 04/21/18 18:07 - Home Medications Home Medications: Ambulatory Orders Aspirin [ASA -] 81 mg PO DAILY 04/21/18 Clonazepam 0.5 mg PO DAILY 04/21/18 Folic Acid 1 mg PO DAILY 04/21/18 Furosemide [Lasix] 40 mg PO DAILY 04/21/18 Nebivolol HCl [Bystolic] 10 mg PO DAILY 04/21/18 Omeprazole 40 mg PO DAILY 04/21/18 Sitagliptin Phos/Metformin HCl [Janumet 50-1,000 mg Tablet] 1 tab PO BID Atorvastatin Ca [Lipitor] 10 mg PO HS #30 tablet 04/23/18 Ferrous Sulfate [Iron] 325 mg PO DAILY 07/07/18 Glimeperide 4 mg PO DAILY 07/07/18 Metolazone 2.5 mg PO DAILY 07/07/18 Vit C/Ascorb Sod/Multivit-Min [Emergen-C 500 mg Chewable Tab] 500 mg PO DAILY Vit D3-Vit K/Berberine/Hops [Ostera Tablet] 1 mg PO DAILY 07/07/18 Vitamin B Complex/Folic Acid [Super B Maxi Complex Caplet] 0.4 mg PO DAILY 07/07 Physical Exam-Neuro Vital Signs: Vital Signs Temperature 98.8 F 07/07/18 20:10 Pulse Rate 72 07/07/18 20:10 Respiratory Rate 20 07/07/18 20:10 Blood Pressure 155/79 07/07/18 20:10 O2 Sat by Pulse Oximetry (%) 98 07/07/18 20:10 Labs: CBC, BMP 07/07/18 12:30 07/07/18 12:20 INR, PTT INR 1.34 (0.83-1.09) H 07/07/18 18:00 - Neuro Exam Level Of Consciousness: Yes: Oriented to Person, Oriented to Place (Not oriented to date/year) Eyes: Yes: YVON Speech: Broca's Aphasia (+ word finding difficulty, minimal anomia) Mini Mental Exam: Impaired attention/concentration DTR's: 0 Left Achilles, 0 Right Achilles, 1+ Left Bicep, 1+ Right Bicep, 1+ Left Tricep, 1+ Right Tricep, 1+ Left Brachioradialis, 1+ Right Brachioradialis Babinski: Present (right) Motor Strength: 5/5: Left Arm, Right Arm, Left Leg, Right Leg Gait: Ataxia (slow steps, wide based, stands with assistance takes short steps independently) Assessment/Plan DDX. for patients current presentation includes delirium(encephalopathy), left parietal ischemic event. Suggest:medical w/u as planned, MRI brain with gadolinium(given hx. of lymphoma), carotid doppler study. If no cause of encephalopathy found he may require a spinal tap.ESR/CRP. Thank you, Kodi Roe MD
[2018-07-08] MEDS ORDERED: ACETAMINOPHEN 1000 MG/100 ML VIAL (NON FORMULARY) IVPB ONE (02:30)
--- NOTE | 2018-07-08 02:30 | HP ---
CHIEF COMPLAINT: headache, slurred speech, confusion, and difficulty walking PCP:Dr. Clement Unionmelt Operator : Dr. Hudson Retirement Consultant/ Oncologist: Dr. 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 He was evaluated by Neurology. CT head reported no acute abnormalities. He is maintained on a baby aspirin and atorvastatin. He continues to report a headache and continues to have slurred speech. He was planned for a loop recorder to be implanted at [facility] by his consumer credit counselor in the first week of July. Labs notable for significant thrombocytopenia. He has no evidence of active bleeding. Patient is being admitted to the hospital for further medical, cardiac and neurological evaluation and management. Recent Travel:Denies PAST MEDICAL HISTORY: Diabetes mellitus Hypertension [place] s/p stents TIA Low grade lymphoma (diagnosed 2008) Emphysema PAST SURGICAL HISTORY: Denies Social History: Smoking:smoked for 40 years, quit abruptly recently Alcohol:denies Drugs: denies Family History:noncontributory Allergies No Known Allergies Allergy (Unverified 04/21/18 18:07) HOME MEDICATIONS: Home Medications Medication Instructions Recorded Aspirin [ASA -] 81 mg PO DAILY 04/21/18 Clonazepam 0.5 mg PO DAILY 04/21/18 Folic Acid 1 mg PO DAILY 04/21/18 Furosemide [Lasix] 40 mg PO DAILY 04/21/18 Nebivolol HCl [Bystolic] 10 mg PO DAILY 04/21/18 Omeprazole 40 mg PO DAILY 04/21/18 Sitagliptin Phos/Metformin HCl 1 tab PO BID 04/21/18 [Janumet 50-1,000 mg Tablet] Atorvastatin Ca [Lipitor] 10 mg PO HS #30 tablet 04/23/18 Ferrous Sulfate [Iron] 325 mg PO DAILY 07/07/18 Glimeperide 4 mg PO DAILY 07/07/18 Metolazone 2.5 mg PO DAILY 07/07/18 Vit C/Ascorb Sod/Multivit-Min 500 mg PO DAILY 07/07/18 [Emergen-C 500 mg Chewable Tab] Vit D3-Vit K/Berberine/Hops 1 mg PO DAILY 07/07/18 [Ostera Tablet] Vitamin B Complex/Folic Acid 0.4 mg PO DAILY 07/07/18 [Super B Maxi Complex Caplet] REVIEW OF SYSTEMS CONSTITUTIONAL: Absent: fever, chills, diaphoresis, generalized weakness, malaise, loss of appetite, weight change HEENT: Absent: rhinorrhea, nasal congestion, throat pain, throat swelling, difficulty swallowing, mouth swelling, ear pain, eye pain, visual changes CARDIOVASCULAR: Absent: chest pain, syncope, palpitations, irregular heart rate, lightheadedness , peripheral edema RESPIRATORY: Absent: cough, shortness of breath, dyspnea with exertion, orthopnea, wheezing, stridor, hemoptysis GASTROINTESTINAL: Absent: abdominal pain, abdominal distension, nausea, vomiting, diarrhea, constipation, melena, hematochezia GENITOURINARY: Absent: dysuria, frequency, urgency, hesitancy, hematuria, flank pain, genital pain MUSCULOSKELETAL: Absent: myalgia, arthralgia, joint swelling, back pain, neck pain SKIN: Absent: rash, itching, pallor HEMATOLOGIC/IMMUNOLOGIC: Absent: easy bleeding, easy bruising, lymphadenopathy, frequent infections ENDOCRINE: Absent: unexplained weight gain, unexplained weight loss, heat intolerance, cold intolerance NEUROLOGIC: Absent: headache, difficulty walking, confusion, focal weakness or paresthesias , dizziness, unsteady gait, seizure, mental status changes, bladder or bowel incontinence, slurred speech PSYCHIATRIC: Absent: anxiety, depression, suicidal or homicidal ideation, hallucinations. PHYSICAL EXAMINATION Vital Signs - 24 hr 07/07/18 07/07/18 07/07/18 09:52 18:00 20:10 Temperature 98.4 F 98.1 F 98.8 F Pulse Rate 74 74 Pulse Rate [ 72 Right] Respiratory 16 16 20 Rate Blood Pressure 159/57 L 135/71 Blood Pressure 155/79 [Right Arm] O2 Sat by Pulse 97 98 Oximetry (%) 07/07/18 23:39 Temperature Pulse Rate Pulse Rate [ Right] Respiratory Rate Blood Pressure Blood Pressure [Right Arm] O2 Sat by Pulse 99 Oximetry (%) GENERAL: awake, alert, and follows simple commands, slurred speech HEAD: normal with no signs of trauma. EYES: pupils equal, round and reactive to light. EARS, NOSE, THROAT: ears normal, nares patent, moist mucous membranes. NECK: normal range of motion. LUNGS: breath sounds equal, clear to auscultation bilaterally. No wheezes, and no crackles. No accessory muscle use. HEART: regular rate and rhythm, normal S1 and S2. ABDOMEN: soft, nontender, not distended, normoactive bowel sounds. MUSCULOSKELETAL: normal range of motion at all joints. No bony deformities or tenderness. UPPER EXTREMITIES: 2+ pulses, warm, well-perfused. No cyanosis. No clubbing. No peripheral edema. LOWER EXTREMITIES: 2+ pulses, warm, well-perfused. No calf tenderness. 1+ lower extremity edema present NEUROLOGICAL: moving upper and lower extremities with good strength, no facial grimace, tongue midline, speech unclear . PSYCHIATRIC: cooperative. SKIN: warm, dry, normal turgor, no rashes or lesions noted. Laboratory Results - last 24 hr 07/07/18 07/07/18 07/07/18 12:20 12:30 12:30 WBC 4.8 RBC 4.05 Hgb 12.8 Hct 36.8 MCV 90.8 MCH 31.7 MCHC 34.9 RDW 14.9 Plt Count 58 L MPV 9.2 Absolute Neuts (auto) 2.9 Neutrophils % 61.6 Lymphocytes % 24.4 Monocytes % 11.4 H Eosinophils % 2.1 Basophils % 0.5 Nucleated RBC % 0 PT with INR INR PTT (Actin FS) Sodium 143 Potassium 3.5 Chloride 106 Carbon Dioxide 31 Anion Gap 6 L BUN 20 H Creatinine 1.3 Creat Clearance w eGFR 54.11 Random Glucose 128 H Calcium 9.0 Total Bilirubin 1.3 H AST 63 H ALT 40 Alkaline Phosphatase 153 H Creatine Kinase 289 Creatine Kinase Index 0.7 CK-MB (CK-2) 2.1 Troponin I 0.02 Total Protein 7.1 Albumin 3.3 L Urine Color Urine Appearance Urine pH Ur Specific Fifty Six Urine Protein Urine Glucose (UA) Urine Ketones Urine Blood Urine Nitrite Urine Bilirubin Urine Urobilinogen Ur Leukocyte Esterase Alcohol, Quantitative < 3.0 07/07/18 07/07/18 07/07/18 18:00 18:10 18:14 WBC RBC Hgb Hct MCV MCH MCHC RDW Plt Count MPV Absolute Neuts (auto) Neutrophils % Lymphocytes % Monocytes % Eosinophils % Basophils % Nucleated RBC % PT with INR 15.80 H INR 1.34 H PTT (Actin FS) 33.2 Sodium Potassium Chloride Carbon Dioxide Anion Gap BUN Creatinine Creat Clearance w eGFR Random Glucose Calcium Total Bilirubin AST ALT Alkaline Phosphatase Creatine Kinase Creatine Kinase Index CK-MB (CK-2) Troponin I Total Protein Albumin Urine Color Yellow Urine Appearance Clear Urine pH 7.0 Ur Specific Fifty Six 1.012 Urine Protein Negative Urine Glucose (UA) Negative Urine Ketones Negative Urine Blood Negative Urine Nitrite Negative Urine Bilirubin Negative Urine Urobilinogen 2.0 Ur Leukocyte Esterase Negative Alcohol, Quantitative ASSESSMENT/PLAN: 72 year old male with a significant past medical history of diabetes mellitus, hypertension,[place] s/p stents, prior TIA(plan was for a loop recorder to monitor for silent atrial fibrillation first week of july as arranged by his Unionm[employer] Operator) , emphysema, and 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 He was evaluated by Neurology. CT head reported no acute abnormalities. TIA Patient continues to report to be symptomatic with a headache and has slurred speech. Plan is for MRA of brain. Neurology evaluated patient. He will need to be sedated with xanax prior to study as per his family. Continue with aspirin and atorvastatin. Thrombocytopenia noted and continue to monitor closely. Monitor on telemetry for significant arrthymias. Diabetes Mellitus Accucheks before meals and at bedtime. Continue glimeperide. Hypertension Controlled.Continue beta apple. Coronary Artery Disease Patient denies active anginal symptoms. EKG with a normal sinus rhythm and right bundle branch block. Continue with aspirin, atorvastatin and beta apple. Fluid Overload Patient denies dyspnea or orthopnea. reports leg swelling and scrotal edema has improved. Continue with metolazone and oral lasix. Check BNP. Cardiology consulted- Dr. Renee. Will check echocardiogram. Emphysema Stable. Thrombocytopenia Hematology- Dr. Sammy Miller consulted. Low Grade B Cell Lymphoma Consulted Dr. Angel Miller to evaluate as patient reported was supposed to have a PET scan. FEN NPO, speech and swallow evaluation. DVT prophylaxis TEDS and SCD's. Visit type - Emergency Visit Emergency Visit: Yes ED Registration Date: 07/07/18 Care time: The patient presented to the Emergency Department on the above date and was hospitalized for further evaluation of their emergent condition. - New Patient This patient is new to me today: Yes Date on this admission: 07/08/18 - Critical Care Critical Care patient: No
[2018-07-08 04:31] VITALS: BMI 38.8
[2018-07-08] MEDS: GLIMEPIRIDE 4 MG TABLET (FP) PO SCH (06:41)
[2018-07-08] MEDS: metFORMIN HCL 500 MG TABLET (FP) PO SCH ×4 (06:41→18:58)
[2018-07-08] MEDS: sitaGLIPtin PHOSPHATE 100 MG TABLET (FP) PO SCH (06:43)
[2018-07-08 07:58] LABS: HEMATOCRIT 33.4 % (35.4-49); HEMOGLOBIN 11.7 GM/dL (11.7-16.9); MCH 31.2 pg (25.7-33.7); MEAN CELL VOLUME 89.3 fl (80-96); MEAN PLT VOLUME 9.2 fl (7.5-11.1); PLATELET COUNT 57 K/MM3 (134-434); RBC 3.74 M/mm3 (4.00-5.60); RDW 14.7 % (11.9-15.9); WHITE BLOOD COUNT 4.5 K/mm3 (4.0-10.0)
[2018-07-08] MEDS ORDERED: PNEUMOC 13-VAL CONJ-DIP CRM/PF 0.5 ML DISP.SYRIN IM ONE (09:00)
[2018-07-08 09:13] LABS: MAGNESIUM 1.6 mg/dL (1.8-2.4); N-TERMINAL BNP 137.8 pg/ml (5-125); PHOSPHOROUS 4.3 mg/dL (2.5-4.9)
--- NOTE | 2018-07-08 09:45 | CON.CARD ---
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 He was evaluated by Neurology. CT head reported no acute abnormalities. He is maintained on a baby aspirin and atorvastatin. He is improved today and at baseline as per his . He was planned for a loop recorder to be implanted at [facility] by his spa attendant (Dr Waters) 07/17/18. Echo 04/22/18 nlef mild MAC/MR/TR, aortic sclerosis carotid 04/22/18 no stenoses. - History Source History Provided By: Patient, Family Member, Medical Record - Past Medical History Cardio/Vascular: Yes: HTN Gastrointestinal: Yes: GERD Psych: Yes: Anxiety Musculoskeletal: Yes: Osteoarthritis Endocrine: Yes: Diabetes Mellitus - Past Surgical History Past Surgical History: Yes: Appendectomy, Cataract Removal - Alcohol/Substance Use Hx Alcohol Use: No History of Substance Use: reports: None - Smoking History Smoking history: Never smoked Have you smoked in the past 12 months: No - Social History Usual Living Arrangement: With Spouse ADL: Independent Occupation: retired History of Recent Travel: No Home Medications - Allergies Allergies/Adverse Reactions: Allergies Allergy/AdvReac Type Severity Reaction Status Date / Time No Known Allergies Allergy Unverified 04/21/18 18:07 - Home Medications Home Medications: Ambulatory Orders Aspirin [ASA -] 81 mg PO DAILY 04/21/18 Clonazepam 0.5 mg PO DAILY 04/21/18 Folic Acid 1 mg PO DAILY 04/21/18 Furosemide [Lasix] 40 mg PO DAILY 04/21/18 Nebivolol HCl [Bystolic] 10 mg PO DAILY 04/21/18 Omeprazole 40 mg PO DAILY 04/21/18 Sitagliptin Phos/Metformin HCl [Janumet 50-1,000 mg Tablet] 1 tab PO BID Atorvastatin Ca [Lipitor] 10 mg PO HS #30 tablet 04/23/18 Ferrous Sulfate [Iron] 325 mg PO DAILY 07/07/18 Glimeperide 4 mg PO DAILY 07/07/18 Metolazone 2.5 mg PO DAILY 07/07/18 Vit C/Ascorb Sod/Multivit-Min [Emergen-C 500 mg Chewable Tab] 500 mg PO DAILY Vit D3-Vit K/Berberine/Hops [Ostera Tablet] 1 mg PO DAILY 07/07/18 Vitamin B Complex/Folic Acid [Super B Maxi Complex Caplet] 0.4 mg PO DAILY 07/07 Review of Systems Unable to obtain ROS, reason: confusion Vital Signs: Vital Signs Temperature 98.0 F 07/08/18 04:12 Pulse Rate 69 07/08/18 04:12 Respiratory Rate 20 07/08/18 04:12 Blood Pressure 141/69 07/08/18 04:12 O2 Sat by Pulse Oximetry (%) 98 07/08/18 04:12 Constitutional: Yes: No Distress, Calm Eyes: Yes: EOM Intact HENT: Yes: Normocephalic Neck: Yes: Trachea Midline Respiratory: Yes: CTA Bilaterally Gastrointestinal: Yes: Normal Bowel Sounds, Soft Cardiovascular: Yes: Regular Rate and Rhythm JVD: No Carotid Bruit: No PMI: Non-Displaced Heart Sounds: Yes: S1, S2 Murmur: Yes: Systolic Murmur, Grade 2 Musculoskeletal: Yes: WNL Extremities: Yes: WNL Edema: Yes Edema: LLE: Trace, RLE: Trace Peripheral Pulses WNL: Yes - Other Data Labs, Other Data: CBC, BMP 07/07/18 12:20 INR, PTT INR 1.34 (0.83-1.09) H 07/07/18 18:00 Troponin, BNP 07/07/18 07/08/18 12:20 06:40 Troponin I 0.02 B-Natriuretic Peptide 137.8 H Troponin, BNP 07/07/18 07/08/18 12:20 06:40 Troponin I 0.02 B-Natriuretic Peptide 137.8 H Imaging - Results Chest X-ray: Report Reviewed Cat Scan: Report Reviewed EKG: Report Reviewed ([id number] [id number]) Assessment/Plan This is a 72 year old male with a significant past medical history of prior TIA , diabetes, hypertension,[place] s/p stents, emphysema, and 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 He was evaluated by Neurology. CT head reported no acute abnormalities. He is maintained on a baby aspirin and atorvastatin. He is improved today and at baseline as per his . He was planned for a loop recorder to be implanted at [facility] by his spa attendant (Dr Waters) 07/17/18. Echo 04/22/18 nlef mild MAC/MR/TR, aortic sclerosis carotid 04/22/18 no stenoses. 1. Fluid overload--chronic diastolic CHF. -the daughter reports lasix dose is 40 mg bid. Increase lasix. -no need for further testing. 2. CVA--ECG and tele negative. -needs outpatient loop recorder -continue baby aspirin, consider the addition of plavix if recurrent CVA is suspected. Will defer to neurology. -Echo and carotid were negative on last admission, no need to repeat.
[2018-07-08] MEDS ORDERED: PATIENT'S OWN MEDICATION (NON-FORMULARY) (Sitagliptin Phos/Metformin Hcl [Janumet 50-1,000 PO SCH (10:00)
[2018-07-08] MEDS ORDERED: FUROSEMIDE 40 MG TABLET (FP) PO SCH (10:00)
[2018-07-08] MEDS ORDERED: ASPIRIN 81 MG CHEWABLE TABLETS PO SCH (10:00)
--- NOTE | 2018-07-08 10:06 | CONSULT ---
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 He was evaluated by Neurology. CT head reported no acute abnormalities. Pending MRI-Pt refusing due to anxiety. Selected Entries 07/08/18 04:12 Temperature 98.0 F Laboratory Tests 07/08/18 06:40 WBC 4.5 Pt seen by me April 2018 with reported impaired intelligibility/Dyarthria? with spontaneous recovery. Swallowing intact. Oriented.Language intact. MRI noted with Mod Atrophy, no acute CVA Family reports pt improved after April admission, walkning balance not great , some confusion but pretty good, with recent onset of impaired speech production and confusion. Improvement since admission but not yet to baseline. History Source: Family Member, Medical Record Limitations to Obtaining History: Clinical Condition - Past Medical History Cardiovascular: Yes: HTN Gastrointestinal: Yes: GERD Psych: Yes: Anxiety Musculoskeletal: Yes: Osteoarthritis Endocrine: Yes: Diabetes Mellitus - Past Surgical History Past Surgical History: Yes: Appendectomy, Cataract Removal - Smoking History Smoking history: Never smoked Have you smoked in the past 12 months: No - Alcohol/Substance Use Hx Alcohol Use: No History of Substance Use: reports: None - Social History ADL: Independent Occupation: retired History of Recent Travel: No History - Admission Reason For Visit: AMS - Diagnostics X-ray: Report Reviewed CT Scan: Report Reviewed MRI: Pending - General Mental Status: Alert and Oriented (with cues, [facility],74,Feb), Awake and Alert, Able to Follow Commands, Forgetful, Confused (euphoric, impaired insight.) Attention: Distractible, Mild Impairment Ability to Follow Directions: Good Head/Neck Control: WFL - Hearing Hearing: Normal Hearing Aide: No With Patient: No Speech Evaluation - Communication Primary Language: [id number] Secondary Language: YAKUT (some ESL) Communication: Yes: Dysarthria Oral Expression Ability: Yes: Mild Impairment - Speech Production Able to Make Needs Known: Yes: WNL Intelligibility: Yes: Mildly Impaired - Speech Characteristics Voice Loudness: Normal Voice Pitch: Yes: Normal Voice Phonatory-based Quality: Yes: Normal Speech Pattern: Impaired Speech Clarity: < 100% Nasal Resonance: Normal Articulation: Yes: Imprecise Rate of Speech: Too Slow - Language/Auditory Comprehension Follows: Yes: 1 Stage Simple Commands - Language/Verbal Expression Able to Respond to Simple Queries: Yes: Mildly Impaired Able to Communicate Wants and Needs: Yes: WNL Functional Communication Status: Yes: WNL Aware of Errors: No - Swallow Evaluation/Bedside Assessment Current Nutritional Intake: NPO Oral Secretions: Yes: WFL Dentition: Yes: Adequate Facial Symmetry at Rest: Symmetrical Facial Symmetry on Retraction: Symmetrical Facial Movement: Controlled Against Resistance Opening: Weak Against Resistance Closing: Weak Pucker Lips: Normal, Weak Smile: Normal, Weak Lingual Movement: Symmetric Lingual Speed of Movement: Reduced Lingual Movement Strgth Against Opposition: Reduced Lingual Movement Characteristics: Normal Velopharyngeal Movement: Normal Laryngeal Elevation: WFL Laryngeal Movement: Able to Palpate Rate of Intake: WFL Bolus Size: WFL Labial Seal: WFL Chewing: WFL A-P Transit: WFL Pocketing: None Timing of Swallow: WFL Coughing/Throat Clear: No Change in Voice: No Recommendations - Speech Evaluation, Impression/Plan Impression: Mild dysarthria with articulatory imprecision and reduced velocity of movement. Some confusion, with improving speech production/cognition since admission but not to baseline. Reportedly pt has some confusion premorbidly,and impaired balance, with baseline Dementia suspected. Swallowing seems functional. - Disposition Discharge to: To be Determined (Consider STR for cognitive rehab and PT) - Dysphagia Impressions/Plan Swallowing Skills: WF Dysphagia Impressions: Minimal Impairment *Silent aspiration: cannot be R/O at bedside Recommendations: Neuro Consult (f/u), Modified Barium Swallow (if cough, congestion, fever) - Recommendations Diet Consistency: Regular Medication Administration: Whole with water Liquids: Thin Liquids
[2018-07-08] MEDS ORDERED: PT OWN MED DRAWER 7, Y5N ONE (11:33)
[2018-07-08] MEDS: PANTOPRAZOLE 40 MG TABLET (FP) PO SCH (11:35)
[2018-07-08] MEDS: NEBIVOLOL 10 MG TABLET (FP) PO SCH (11:35)
[2018-07-08] MEDS: clonazePAM 0.5 MG TABLET PO SCH (11:36)
[2018-07-08] MEDS: CHOLECALCIFEROL (VITAMIN D3) 1,000 UNIT TABLET (FP) PO SCH (11:36)
[2018-07-08] MEDS: FERROUS SO4 325 MG TABLET (FP) PO SCH (11:36)
[2018-07-08] MEDS: VITAMIN B COMPLEX W/C COMBO TABLET (FP) PO SCH (11:36)
[2018-07-08] MEDS: ASCORBIC ACID 500 MG TABLET (FP) PO SCH (11:36)
[2018-07-08] MEDS: FOLIC ACID 1 MG TABLET (FP) PO SCH (11:36)
--- NOTE | 2018-07-08 12:10 | CONSULT ---
Consultation: REQUESTING PROVIDER: Bard Ivan CONSULT REQUEST: We have been asked to medically evaluate this patient for follow up lymphoma HISTORY OF PRESENT ILLNESS: This is a 72 year old male with a history of low grade B cell lymphoma who presented with slurred speech, confusion, (now improving), work up for CVA in progress, followed by neurology.we were called to evaluate patient for his lymphoma and thrombocytopenia. He is currently followed by Dr. Miller as an outpatient for lymphoma and plan for body scan. As per platelets; he has ranged from 68-57 since 2017. No active signs bleeding, melena, hemoptysis, ecchymosis. Patient also is found to have elevated liver enzymes on this admission. Denies fever, chills, n, v, d, c, chest pain, sob, changes in bowel or bladder. PMH: Diabetes Mellitus, hypertension, CAD s/p stents, prior TIA, paroxysmal atrial fibrillation, emphysema PSH: none Social: quit tobacco recently; 40yr smoker; denies alcohol use REVIEW OF SYSTEMS: CONSTITUTIONAL: Absent: fever, chills, diaphoresis, generalized weakness, malaise, loss of appetite, weight change HEENT: Absent: rhinorrhea, nasal congestion, throat pain, throat swelling, difficulty swallowing, mouth swelling, ear pain, eye pain, visual changes CARDIOVASCULAR: Absent: chest pain, syncope, palpitations, irregular heart rate, lightheadedness , peripheral edema RESPIRATORY: Absent: cough, shortness of breath, dyspnea with exertion, orthopnea, wheezing, stridor, hemoptysis GASTROINTESTINAL: Absent: abdominal pain, abdominal distension, nausea, vomiting, diarrhea, constipation, melena, hematochezia GENITOURINARY: Absent: dysuria, frequency, urgency, hesitancy, hematuria, flank pain, genital pain MUSCULOSKELETAL: Absent: myalgia, arthralgia, joint swelling, back pain, neck pain SKIN: Absent: rash, itching, pallor HEMATOLOGIC/IMMUNOLOGIC: Absent: easy bleeding, easy bruising, lymphadenopathy, frequent infections ENDOCRINE: Absent: unexplained weight gain, unexplained weight loss, heat intolerance, cold intolerance NEUROLOGIC: Positive Absent: headache, focal weakness or paresthesias, dizziness, unsteady gait, seizure, mental status changes, bladder or bowel incontinence PSYCHIATRIC: Absent: anxiety, depression, suicidal or homicidal ideation, hallucinations. PHYSICAL EXAMINATION Vital Signs - 24 hr 07/07/18 07/07/1819 18:00 20:10 23:39 Temperature 98.1 F 98.8 F Pulse Rate 74 Pulse Rate [ 72 Right] Respiratory 16 20 Rate Blood Pressure 135/71 Blood Pressure 155/79 [Right Arm] O2 Sat by Pulse 98 99 Oximetry (%) 07/08/18 07/08/18 07/08/18 02:30 04:12 10:00 Temperature 98.0 F 98 F Pulse Rate 69 69 Pulse Rate [ 73 Right] Respiratory 20 20 20 Rate Blood Pressure 141/69 132/63 Blood Pressure 150/68 [Right Arm] O2 Sat by Pulse 98 98 Oximetry (%) GENERAL: Awake, alert, and fully oriented, in no acute distress. HEAD: Normal with no signs of trauma. EYES: Pupils equal, round and reactive to light, extraocular movements intact, sclera anicteric, conjunctiva clear. No lid lag. EARS, NOSE, THROAT: Ears normal, nares patent, oropharynx clear without exudates. Moist mucous membranes. NECK: Normal range of motion, supple without lymphadenopathy, JVD, or masses. BREAST/Axilla; negative for lumps/masses/nipple discharge LUNGS: Breath sounds equal, clear to auscultation bilaterally. No wheezes, and no crackles. No accessory muscle use. HEART: Regular rate and rhythm, normal S1 and S2 without murmur, rub or gallop. ABDOMEN: Soft, nontender, slightly distended, normoactive bowel sounds, no guarding, no rebound, no masses. No hepatomegaly or splenomegaly. MUSCULOSKELETAL: Normal range of motion at all joints. No bony deformities or tenderness. No CVA tenderness. UPPER EXTREMITIES: 2+ pulses, warm, well-perfused. No cyanosis. No clubbing. Cap refill <2 seconds. No peripheral edema. LOWER EXTREMITIES: 2+ pulses, warm, well-perfused. No calf tenderness. No peripheral edema. NEUROLOGICAL: Cranial nerves II-XII intact. speech is slurred ; 5/5 strength of all extremities; sensation is equal and intact throughout PSYCHIATRIC: slightly anxious SKIN: Warm, dry, normal turgor, no rashes or lesions noted. Laboratory Results - last 24 hr 07/07/18 07/07/18 07/07/18 12:20 12:30 12:30 WBC 4.8 RBC 4.05 Hgb 12.8 Hct 36.8 MCV 90.8 MCH 31.7 MCHC 34.9 RDW 14.9 Plt Count 58 L MPV 9.2 Absolute Neuts (auto) 2.9 Neutrophils % 61.6 Lymphocytes % 24.4 Monocytes % 11.4 H Eosinophils % 2.1 Basophils % 0.5 Nucleated RBC % 0 ESR PT with INR INR PTT (Actin FS) Sodium 143 Potassium 3.5 Chloride 106 Carbon Dioxide 31 Anion Gap 6 L BUN 20 H Creatinine 1.3 Creat Clearance w eGFR 54.11 POC Glucometer Random Glucose 128 H Calcium 9.0 Phosphorus Magnesium Total Bilirubin 1.3 H AST 63 H ALT 40 Alkaline Phosphatase 153 H Creatine Kinase 289 Creatine Kinase Index 0.7 CK-MB (CK-2) 2.1 Troponin I 0.02 C-Reactive Protein B-Natriuretic Peptide Total Protein 7.1 Albumin 3.3 L Urine Color Urine Appearance Urine pH Ur Specific [place] Urine Protein Urine Glucose (UA) Urine Ketones Urine Blood Urine Nitrite Urine Bilirubin Urine Urobilinogen Ur Leukocyte Esterase Alcohol, Quantitative < 3.0 07/07/18 07/07/18 07/07/18 18:00 18:10 18:14 WBC RBC Hgb Hct MCV MCH MCHC RDW Plt Count MPV Absolute Neuts (auto) Neutrophils % Lymphocytes % Monocytes % Eosinophils % Basophils % Nucleated RBC % ESR PT with INR 15.80 H INR 1.34 H PTT (Actin FS) 33.2 Sodium Potassium Chloride Carbon Dioxide Anion Gap BUN Creatinine Creat Clearance w eGFR POC Glucometer Random Glucose Calcium Phosphorus Magnesium Total Bilirubin AST ALT Alkaline Phosphatase Creatine Kinase Creatine Kinase Index CK-MB (CK-2) Troponin I C-Reactive Protein B-Natriuretic Peptide Total Protein Albumin Urine Color Yellow Urine Appearance Clear Urine pH 7.0 Ur Specific [place] 1.012 Urine Protein Negative Urine Glucose (UA) Negative Urine Ketones Negative Urine Blood Negative Urine Nitrite Negative Urine Bilirubin Negative Urine Urobilinogen 2.0 Ur Leukocyte Esterase Negative Alcohol, Quantitative 07/08/18 07/08/18 07/08/18 06:40 06:40 06:40 WBC 4.5 RBC 3.74 L Hgb 11.7 Hct 33.4 L MCV 89.3 MCH 31.2 MCHC 35.0 RDW 14.7 Plt Count 57 L MPV 9.2 Absolute Neuts (auto) Neutrophils % Lymphocytes % Monocytes % Eosinophils % Basophils % Nucleated RBC % ESR 12 PT with INR INR PTT (Actin FS) Sodium Potassium Chloride Carbon Dioxide Anion Gap BUN Creatinine Creat Clearance w eGFR POC Glucometer Random Glucose Calcium Phosphorus 4.3 Magnesium 1.6 L Total Bilirubin AST ALT Alkaline Phosphatase Creatine Kinase Creatine Kinase Index CK-MB (CK-2) Troponin I C-Reactive Protein B-Natriuretic Peptide 137.8 H Total Protein Albumin Urine Color Urine Appearance Urine pH Ur Specific [place] Urine Protein Urine Glucose (UA) Urine Ketones Urine Blood Urine Nitrite Urine Bilirubin Urine Urobilinogen Ur Leukocyte Esterase Alcohol, Quantitative 07/08/18 07/08/18 06:40 06:49 WBC RBC Hgb Hct MCV MCH MCHC RDW Plt Count MPV Absolute Neuts (auto) Neutrophils % Lymphocytes % Monocytes % Eosinophils % Basophils % Nucleated RBC % ESR PT with INR INR PTT (Actin FS) Sodium Potassium Chloride Carbon Dioxide Anion Gap BUN Creatinine Creat Clearance w eGFR POC Glucometer 123 Random Glucose Calcium Phosphorus Magnesium Total Bilirubin AST ALT Alkaline Phosphatase Creatine Kinase Creatine Kinase Index CK-MB (CK-2) Troponin I C-Reactive Protein < 0.3 B-Natriuretic Peptide Total Protein Albumin Urine Color Urine Appearance Urine pH Ur Specific [place] Urine Protein Urine Glucose (UA) Urine Ketones Urine Blood Urine Nitrite Urine Bilirubin Urine Urobilinogen Ur Leukocyte Esterase Alcohol, Quantitative Active Medications Generic Name Dose Route Start Last Admin Trade Name Freq PRN Reason Stop Dose Admin Ascorbic Acid 500 mg 07/08/18 10:00 07/08/18 11:36 Vitamin C - PO 500 mg DAILY PRISCA Administration Atorvastatin Calcium 20 mg 07/07/18 22:00 07/07/18 21:00 Lipitor - PO 20 mg HS PRISCA Administration Cholecalciferol 1,000 unit 07/08/18 10:00 07/08/18 11:36 Vitamin D3 - PO 1,000 unit DAILY PRISCA Administration Clonazepam 0.5 mg 07/08/18 10:00 07/08/18 11:36 Klonopin - PO 0.5 mg DAILY PRISCA Administration Ferrous Sulfate 325 mg 07/08/18 10:00 07/08/18 11:36 Feosol - PO 325 mg DAILY PRISCA Administration Folic Acid 1 mg 07/08/18 10:00 07/08/18 11:36 Folic Acid - PO 1 mg DAILY PRISCA Administration Furosemide 40 mg 07/08/18 14:00 Lasix - PO BID@0600,1400 PRIS[facility] Glimepiride 4 mg 07/08/18 07:00 07/08/18 06:41 Amaryl - PO Not Given DAILY@0700 [facility] Lorazepam 1 mg 07/08/18 11:08 Ativan Injection - IVPUSH 07/08/18 11:09 ONCE ONE Metformin HCl 1,000 mg 07/08/18 07:00 07/08/18 06:41 Glucophage - PO Not Given BID@0700,1630 PR[facility] Metformin HCl 1,000 mg 07/08/18 07:00 07/08/18 06:42 Glucophage - PO Not Given BIDAC [facility] Multivitamins 1 each 07/08/18 10:00 07/08/18 11:36 Total B With C - PO 1 each DAILY PRISCA Administration Nebivolol 10 mg 07/08/18 10:00 07/08/18 11:35 Bystolic - PO 10 mg DAILY PRISCA Administration Pantoprazole Sodium 40 mg 07/08/18 10:00 07/08/18 11:35 Protonix - PO 40 mg DAILY PRISCA Administration Sitagliptin Phosphate 100 mg 07/08/18 07:00 07/08/18 06:43 Januvia - PO Not Given DAILY@0700 [facility] ASSESSMENT/PLAN: This is a 72 year old male with low grade B cell lymphoma, presenting with slurred speech, CVA work up in progress, also with chronic thrombocytopenia. AMS r/o CVA/TIA Lymphoma Thrombocytopenia Transaminitis hx Paroxysmal atrial fibrillation hx DM hx HTN -thrombocytopenia is chronic due to lymphoma; although has dropped by ten since 2017; now 57; no active bleed; no procedures planned; would continue to monitor -will get abdominal US r/o hepatosplenomegaly/liver dis -will eval protein studies; -plan for pet scan as outpatient -MRI Brain Dispo: We will continue to follow the patient. Thank you for this consultative opportunity. Visit type - Emergency Visit Emergency Visit: Yes ED Registration Date: 07/08/18 Care time: The patient presented to the Emergency Department on the above date and was hospitalized for further evaluation of their emergent condition. - New Patient This patient is new to me today: Yes Date on this admission: 07/08/18 - Critical Care Critical Care patient: No
--- NOTE | 2018-07-08 14:10 | PN ---
Progress Note (short form) - Note Progress Note: Events noted Family at bedside Pt is at baseline No complaints Vital Signs - 24 hr 07/07/18 07/07/18 07/07/18 18:00 20:10 23:39 Temperature 98.1 F 98.8 F Pulse Rate 74 Pulse Rate [ 72 Right] Respiratory 16 20 Rate Blood Pressure 135/71 Blood Pressure 155/79 [Right Arm] O2 Sat by Pulse 98 99 Oximetry (%) 07/08/18 07/08/18 07/08/18 02:30 04:12 10:00 Temperature 98.0 F 98 F Pulse Rate 69 69 Pulse Rate [ 73 Right] Respiratory 20 20 20 Rate Blood Pressure 141/69 132/63 Blood Pressure 150/68 [Right Arm] O2 Sat by Pulse 98 98 Oximetry (%) Current Medications Generic Name Dose Route Start Last Admin Trade Name Freq PRN Reason Stop Dose Admin Ascorbic Acid 500 mg 07/08/18 10:00 07/08/18 11:36 Vitamin C - PO 500 mg DAILY PRISCA Administration Atorvastatin Calcium 20 mg 07/07/18 22:00 07/07/18 21:00 Lipitor - PO 20 mg HS PRISCA Administration Cholecalciferol 1,000 unit 07/08/18 10:00 07/08/18 11:36 Vitamin D3 - PO 1,000 unit DAILY PRISCA Administration Clonazepam 0.5 mg 07/08/18 10:00 07/08/18 11:36 Klonopin - PO 0.5 mg DAILY PRISCA Administration Ferrous Sulfate 325 mg 07/08/18 10:00 07/08/18 11:36 Feosol - PO 325 mg DAILY PRISCA Administration Folic Acid 1 mg 07/08/18 10:00 07/08/18 11:36 Folic Acid - PO 1 mg DAILY PRISCA Administration Furosemide 40 mg 07/08/18 14:00 Lasix - PO BID@0600,1400 [facility] Glimepiride 4 mg 07/08/18 07:00 07/08/18 06:41 Amaryl - PO Not Given DAILY@0700 [facility] Lorazepam 1 mg 07/08/18 11:08 Ativan Injection - IVPUSH 07/08/18 11:09 ONCE ONE Metformin HCl 1,000 mg 07/08/18 07:00 07/08/18 06:41 Glucophage - PO Not Given BID@0700,1630 [facility] Metformin HCl 1,000 mg 07/08/18 07:00 07/08/18 06:42 Glucophage - PO Not Given BIDAC [facility] Multivitamins 1 each 07/08/18 10:00 07/08/18 11:36 Total B With C - PO 1 each DAILY PRISCA Administration Nebivolol 10 mg 07/08/18 10:00 07/08/18 11:35 Bystolic - PO 10 mg DAILY PRISCA Administration Pantoprazole Sodium 40 mg 07/08/18 10:00 07/08/18 11:35 Protonix - PO 40 mg DAILY PRISCA Administration Sitagliptin Phosphate 100 mg 07/08/18 07:00 07/08/18 06:43 Januvia - PO Not Given DAILY@0700 [facility] Laboratory Results - last 24 hr 07/07/18 07/07/18 07/07/18 18:00 18:10 18:14 WBC RBC Hgb Hct MCV MCH MCHC RDW Plt Count MPV ESR PT with INR 15.80 H INR 1.34 H PTT (Actin FS) 33.2 POC Glucometer Phosphorus Magnesium C-Reactive Protein B-Natriuretic Peptide Urine Color Yellow Urine Appearance Clear Urine pH 7.0 Ur Specific [place] 1.012 Urine Protein Negative Urine Glucose (UA) Negative Urine Ketones Negative Urine Blood Negative Urine Nitrite Negative Urine Bilirubin Negative Urine Urobilinogen 2.0 Ur Leukocyte Esterase Negative 07/08/18 07/08/18 07/08/18 06:40 06:40 06:40 WBC 4.5 RBC 3.74 L Hgb 11.7 Hct 33.4 L MCV 89.3 MCH 31.2 MCHC 35.0 RDW 14.7 Plt Count 57 L MPV 9.2 ESR 12 PT with INR INR PTT (Actin FS) POC Glucometer Phosphorus 4.3 Magnesium 1.6 L C-Reactive Protein B-Natriuretic Peptide 137.8 H Urine Color Urine Appearance Urine pH Ur Specific [place] Urine Protein Urine Glucose (UA) Urine Ketones Urine Blood Urine Nitrite Urine Bilirubin Urine Urobilinogen Ur Leukocyte Esterase 07/08/18 07/08/18 06:40 06:49 WBC RBC Hgb Hct MCV MCH MCHC RDW Plt Count MPV ESR PT with INR INR PTT (Actin FS) POC Glucometer 123 Phosphorus Magnesium C-Reactive Protein < 0.3 B-Natriuretic Peptide Urine Color Urine Appearance Urine pH Ur Specific [place] Urine Protein Urine Glucose (UA) Urine Ketones Urine Blood Urine Nitrite Urine Bilirubin Urine Urobilinogen Ur Leukocyte Esterase no pallor S1 s2 RRR Lungs clear Abd- soft, NT dependent edema Able to ambulate PLAN Cardiology and Neurology consult appreciated Platelets stable would continue ASA 81mg Pending MRI brain -- give ativan prior to MRI lasix BID replace magnesium Hematology eval noted-- ordered sono abd Problem List - Problems (1) Altered mental status Code(s): R41.82 - ALTERED MENTAL STATUS, UNSPECIFIED (2) DM type 2 (diabetes mellitus, type 2) Code(s): E11.9 - TYPE 2 DIABETES MELLITUS WITHOUT COMPLICATIONS Qualifiers: Diabetes mellitus public aid eligibility assistant insulin use: without public aid eligibility assistant use (3) DVT prophylaxis Code(s): [id number] - (4) GERD (gastroesophageal reflux disease) Code(s): K21.9 - GASTRO-ESOPHAGEAL REFLUX DISEASE WITHOUT ESOPHAGITIS (5) HTN (hypertension) Code(s): I10 - ESSENTIAL (PRIMARY) HYPERTENSION (6) TIA (transient ischemic attack) Code(s): G45.9 - TRANSIENT CEREBRAL ISCHEMIC ATTACK, UNSPECIFIED (7) Thrombocytopenia Code(s): D69.6 - THROMBOCYTOPENIA, UNSPECIFIED
[2018-07-08] MEDS ORDERED: MAGNESIUM SULF 50% (8.12 MEQ/2 ML-1 GM VIAL) IVPB ONE (14:30)
[2018-07-08] MEDS: FUROSEMIDE 40 MG TABLET (FP) PO SCH (15:29)
[2018-07-08] MEDS: LORazepam 2 MG/ML SDV VIAL IVPUSH ONE ×2 (16:45→18:33)
--- NOTE | 2018-07-08 19:26 | PN ---
Progress Note (short form) - Note Progress Note: NEUROLOGY F/U-SHASHI SUÁREZ Pt. is unchanged since last night, remains mildly inattentive. Level Of Consciousness: Yes: Oriented to Person, Oriented to Place (Not oriented to date/year) Eyes: Yes: YVON Speech: Broca's Aphasia (+ word finding difficulty, minimal anomia) Mini Mental Exam: Impaired attention/concentration DTR's: 0 Left Achilles, 0 Right Achilles, 1+ Left Bicep, 1+ Right Bicep, 1+ Left Tricep, 1+ Right Tricep, 1+ Left Brachioradialis, 1+ Right Brachioradialis Babinski: Present (right) Motor Strength: 5/5: Left Arm, Right Arm, Left Leg, Right Leg Gait: Ataxia (slow steps, wide based, stands with assistance takes short steps independently) MRI brain without acute ischemic/other acute changes. A+P:Pt. appears encephalopathic, medical w/u in progress.
[2018-07-08] MEDS: ATORVASTATIN CA 20 MG TABLET (FP) PO SCH (21:52)
[2018-07-09] MEDS: GLIMEPIRIDE 4 MG TABLET (FP) PO SCH (06:10)
[2018-07-09] MEDS: FUROSEMIDE 40 MG TABLET (FP) PO SCH ×2 (06:10→18:00)
[2018-07-09] MEDS: sitaGLIPtin PHOSPHATE 100 MG TABLET (FP) PO SCH (06:12)
[2018-07-09] MEDS: metFORMIN HCL 500 MG TABLET (FP) PO SCH ×2 (06:20→18:00)
[2018-07-09 07:03] LABS: ANION GAP 8 MMOL/L (8-16); BLOOD UREA NITROGEN 20 mg/dL (7-18); CALCIUM 8.9 mg/dL (8.5-10.1); CHLORIDE 106 mmol/L (98-107); CO2 28 mmol/L (21-32); CREATININE 1.2 mg/dL (0.55-1.3); GLUCOSE,RANDOM 121 mg/dL (74-106); POTASSIUM 3.3 mmol/L (3.5-5.1); SODIUM 142 mmol/L (136-145)
[2018-07-09] MEDS ORDERED: ASPIRIN 81 MG CHEWABLE TABLETS PO SCH (10:00)
[2018-07-09] MEDS ORDERED: POTASSIUM CHLORIDE TABS 20 MEQ TABLET.ER (FP) PO ONE (10:01)
--- NOTE | 2018-07-09 10:26 | DS ---
Physical Examination Vital Signs: Vital Signs Temperature 97.8 F 07/09/18 06:00 Pulse Rate 66 07/09/18 06:00 Respiratory Rate 20 07/09/18 09:00 Blood Pressure 106/50 L 07/09/18 06:00 O2 Sat by Pulse Oximetry (%) 100 07/09/18 09:00 Constitutional: Yes: No Distress, Calm Cardiovascular: Yes: Regular Rate and Rhythm Respiratory: Yes: CTA Bilaterally Gastrointestinal: Yes: Normal Bowel Sounds, Soft. No: Tenderness Edema: No Labs: CBC, BMP 07/08/18 06:40 07/09/18 05:30 Discharge Summary Reason For Visit: AMS Current Active Problems Altered mental status (Acute) Thrombocytopenia (Acute) Condition: Stable - Instructions - Home Medications Comprehensive Discharge Medication List: Ambulatory Orders Aspirin [ASA -] 81 mg PO DAILY 04/21/18 Clonazepam 0.5 mg PO DAILY 04/21/18 Folic Acid 1 mg PO DAILY 04/21/18 Furosemide [Lasix] 40 mg PO DAILY 04/21/18 Nebivolol HCl [Bystolic] 10 mg PO DAILY 04/21/18 Omeprazole 40 mg PO DAILY 04/21/18 Sitagliptin Phos/Metformin HCl [Janumet 50-1,000 mg Tablet] 1 tab PO BID Atorvastatin Ca [Lipitor] 10 mg PO HS #30 tablet 04/23/18 Ferrous Sulfate [Iron] 325 mg PO DAILY 07/07/18 Glimeperide 4 mg PO DAILY 07/07/18 Metolazone 2.5 mg PO DAILY 07/07/18 Vit C/Ascorb Sod/Multivit-Min [Emergen-C 500 mg Chewable Tab] 500 mg PO DAILY Vit D3-Vit K/Berberine/Hops [Ostera Tablet] 1 mg PO DAILY 07/07/18 Vitamin B Complex/Folic Acid [Super B Maxi Complex Caplet] 0.4 mg PO DAILY 07/07
[2018-07-09] MEDS: FERROUS SO4 325 MG TABLET (FP) PO SCH (10:54)
[2018-07-09] MEDS: FOLIC ACID 1 MG TABLET (FP) PO SCH (10:54)
[2018-07-09] MEDS: NEBIVOLOL 10 MG TABLET (FP) PO SCH (10:54)
[2018-07-09] MEDS: CHOLECALCIFEROL (VITAMIN D3) 1,000 UNIT TABLET (FP) PO SCH (10:54)
[2018-07-09] MEDS: PANTOPRAZOLE 40 MG TABLET (FP) PO SCH (10:54)
[2018-07-09] MEDS: VITAMIN B COMPLEX W/C COMBO TABLET (FP) PO SCH (10:55)
[2018-07-09] MEDS: ASCORBIC ACID 500 MG TABLET (FP) PO SCH (10:55)
[2018-07-09] MEDS: clonazePAM 0.5 MG TABLET PO SCH (10:55)
--- NOTE | 2018-07-09 11:07 | PN ---
Progress Note (short form) - Note Progress Note: Events noted Family at bedside Pt is at baseline No complaints speech better Vital Signs - 24 hr 07/08/18 07/08/18 07/08/18 14:00 17:00 21:00 Temperature 97.6 F 97.8 F Pulse Rate 63 69 Respiratory 20 20 Rate Blood Pressure 129/57 L 154/70 O2 Sat by Pulse 100 Oximetry (%) 07/08/18 07/09/18 07/09/18 22:00 02:32 06:00 Temperature 97.5 F L 98.0 F 97.8 F Pulse Rate 66 70 66 Respiratory 20 20 20 Rate Blood Pressure 140/70 142/70 106/50 L O2 Sat by Pulse Oximetry (%) 07/09/18 09:00 Temperature Pulse Rate Respiratory 20 Rate Blood Pressure O2 Sat by Pulse 100 Oximetry (%) Current Medications Generic Name Dose Route Start Last Admin Trade Name Freq PRN Reason Stop Dose Admin Ascorbic Acid 500 mg 07/08/18 10:00 07/09/18 10:55 Vitamin C - PO 500 mg DAILY PRISCA Administration Atorvastatin Calcium 20 mg 07/07/18 22:00 07/08/18 21:52 Lipitor - PO 20 mg HS PRISCA Administration Cholecalciferol 1,000 unit 07/08/18 10:00 07/09/18 10:54 Vitamin D3 - PO 1,000 unit DAILY PRISCA Administration Clonazepam 0.5 mg 07/08/18 10:00 07/09/18 10:55 Klonopin - PO 0.5 mg DAILY PRISCA Administration Ferrous Sulfate 325 mg 07/08/18 10:00 07/09/18 10:54 Feosol - PO 325 mg DAILY PRISCA Administration Folic Acid 1 mg 07/08/18 10:00 07/09/18 10:54 Folic Acid - PO 1 mg DAILY PRISCA Administration Furosemide 40 mg 07/08/18 14:00 07/09/18 06:10 Lasix - PO 40 mg BID@0600,1400 PRIS[facility] Administration Glimepiride 4 mg 07/08/18 07:00 07/09/18 06:10 Amaryl - PO 4 mg DAILY@0700 [facility] Administration Metformin HCl 1,000 mg 07/08/18 07:00 07/09/18 06:20 Glucophage - PO 1,000 mg BIDAC PRIS[facility] Administration Multivitamins 1 each 07/08/18 10:00 07/09/18 10:55 Total B With C - PO 1 each DAILY PRISCA Administration Nebivolol 10 mg 07/08/18 10:00 07/09/18 10:54 Bystolic - PO 10 mg DAILY PRISCA Administration Pantoprazole Sodium 40 mg 07/08/18 10:00 07/09/18 10:54 Protonix - PO 40 mg DAILY PRISCA Administration Sitagliptin Phosphate 100 mg 07/08/18 07:00 07/09/18 06:12 Januvia - PO 100 mg DAILY@0700 [facility] Administration Laboratory Results - last 24 hr 07/09/18 07/09/18 07/09/18 01:16 05:30 05:55 Sodium 142 Potassium 3.3 L Chloride 106 Carbon Dioxide 28 Anion Gap 8 BUN 20 H Creatinine 1.2 Creat Clearance w eGFR 59.35 POC Glucometer 108 115 Random Glucose 121 H Calcium 8.9 no pallor S1 s2 RRR Lungs clear Abd- soft, NT dependent edema Able to ambulate PLAN MRI-- negative for acute pathology Sono abd-- splenomegaly and fatty liver replace Potassium Spoke with Hematology- Dr Miller- family had discussed with him at length yesterday and they wish to know if his lymphoma is progressing- since he has these episodes of confusion, altered mentation - family is consenting to do bone marrow testing I will also order CT chest /abd/pelvis without contrast to check for progression of disease Will hold off discharge today pending these studies He has a loop recorder placed Problem List - Problems (1) Altered mental status Code(s): R41.82 - ALTERED MENTAL STATUS, UNSPECIFIED (2) DM type 2 (diabetes mellitus, type 2) Code(s): E11.9 - TYPE 2 DIABETES MELLITUS WITHOUT COMPLICATIONS Qualifiers: Diabetes mellitus half-way insulin use: without fisher [place] use (3) DVT prophylaxis Code(s): [id number] - (4) GERD (gastroesophageal reflux disease) Code(s): K21.9 - GASTRO-ESOPHAGEAL REFLUX DISEASE WITHOUT ESOPHAGITIS (5) HTN (hypertension) Code(s): I10 - ESSENTIAL (PRIMARY) HYPERTENSION (6) TIA (transient ischemic attack) Code(s): G45.9 - TRANSIENT CEREBRAL ISCHEMIC ATTACK, UNSPECIFIED (7) Thrombocytopenia Code(s): D69.6 - THROMBOCYTOPENIA, UNSPECIFIED
--- NOTE | 2018-07-09 11:11 | PN ---
Progress Note, LADLE REPAIRER - Note Progress Note: Selected Entries 07/08/18 07/08/18 07/08/18 04:12 10:00 14:00 Lunch 75% Supper Temperature 98.0 F 98 F 97.6 F 07/08/18 07/08/18 07/08/18 17:00 21:23 22:00 Lunch Supper 75% Temperature 97.8 F 97.5 F L 07/09/18 07/09/18 02:32 06:00 Lunch Supper Temperature 98.0 F 97.8 F Laboratory Tests 07/07/18 07/08/18 07/09/18 12:20 06:40 05:30 WBC 4.5 Sodium 142 BUN 20 H 20 H Random Glucose 128 H Calcium 8.9 MRI noted. Mild Dysarthria persists with some confusion. Language function WNL for me. Tolerating diet well without signs/symptoms of dysphagia Encephalopathy W/U in progress, pending bone marrow testing/CT
--- NOTE | 2018-07-09 15:14 | PN ---
Physical Exam: SUBJECTIVE: Patient seen and examined; for MRI abdomen today; MRI of brain no acute infarct; OBJECTIVE: Vital Signs Period Temp Pulse Resp BP Sys/Mckenna Pulse Ox Last 24 Hr 97.5 F-98.0 F 58-70 20-20 106-154/50-70 100-100 GENERAL: The patient is awake, alert, and fully oriented, in no acute distress. NECK: Trachea midline, full range of motion, supple. LUNGS: Breath sounds equal, clear to auscultation bilaterally, no wheezes, no crackles, no accessory muscle use. HEART: Regular rate and rhythm, S1, S2 without murmur, rub or gallop. ABDOMEN: globose; distended; +BS EXTREMITIES: 2+ pulses, warm, well-perfused,; b/l 1+ edema NEUROLOGICAL: speech improved; less slurred PSYCH:anxious SKIN: Warm, dry, normal turgor, no rashes or lesions noted Laboratory Results - last 24 hr 07/09/18 07/09/18 07/09/18 01:16 05:30 05:55 Sodium 142 Potassium 3.3 L Chloride 106 Carbon Dioxide 28 Anion Gap 8 BUN 20 H Creatinine 1.2 Creat Clearance w eGFR 59.35 POC Glucometer 108 115 Random Glucose 121 H Calcium 8.9 Active Medications Generic Name Dose Route Start Last Admin Trade Name Alex PRN Reason Stop Dose Admin Ascorbic Acid 500 mg 07/08/18 10:00 07/09/18 10:55 Vitamin C - PO 500 mg DAILY PRISCA Administration Atorvastatin Calcium 20 mg 07/07/18 22:00 07/08/18 21:52 Lipitor - PO 20 mg HS PRISCA Administration Cholecalciferol 1,000 unit 07/08/18 10:00 07/09/18 10:54 Vitamin D3 - PO 1,000 unit DAILY PRISCA Administration Clonazepam 0.5 mg 07/08/18 10:00 07/09/18 10:55 Klonopin - PO 0.5 mg DAILY PRISCA Administration Ferrous Sulfate 325 mg 07/08/18 10:07/09/18 10:54 Feosol - PO 325 mg DAILY PRISCA Administration Folic Acid 1 mg 07/08/18 10:00 07/09/18 10:54 Folic Acid - PO 1 mg DAILY PRISCA Administration Furosemide 40 mg 07/08/18 14:00 07/09/18 06:10 Lasix - PO 40 mg BID@0600,1400 PRISCA Administration Glimepiride 4 mg 07/08/18 07:00 07/09/18 06:10 Amaryl - PO 4 mg DAILY@0700 PRISCA Administration Metformin HCl 1,000 mg 07/08/18 07:00 07/09/18 06:20 Glucophage - PO 1,000 mg BIDAC PRISCA Administration Multivitamins 1 each 07/08/18 10:00 07/09/18 10:55 Total B With C - PO 1 each DAILY PRISCA Administration Nebivolol 10 mg 07/08/18 10:00 07/09/18 10:54 Bystolic - PO 10 mg DAILY PRISCA Administration Pantoprazole Sodium 40 mg 07/08/18 10:00 07/09/18 10:54 Protonix - PO 40 mg DAILY PRISCA Administration Sitagliptin Phosphate 100 mg 07/08/18 07:00 07/09/18 06:12 Januvia - PO 100 mg DAILY@0700 PRISCA Administration ASSESSMENT/PLAN: This is a 72 year old male with low grade B cell lymphoma, presenting with slurred speech, CVA work up in progress, also with chronic thrombocytopenia. AMS r/o CVA/TIA Lymphoma Thrombocytopenia Transaminitis hx Paroxysmal atrial fibrillation hx DM hx HTN -thrombocytopenia is chronic due to lymphoma; although has dropped by ten since 2017; ranged 57-60; -do to hx of TIA and mutli small infarcts; will need to be on antiplatelet therapy -will do bone marrow biopsy today ; r/o lymphoma invasion into the bone marrow -abdominal US with heptomegaly -protein studies; -plan for pet scan as outpatient -MRI Brain ; negative for acute pathology Visit type - Emergency Visit Emergency Visit: Yes ED Registration Date: 07/08/18 Care time: The patient presented to the Emergency Department on the above date and was hospitalized for further evaluation of their emergent condition. - New Patient This patient is new to me today: No - Critical Care Critical Care patient: No
--- NOTE | 2018-07-09 15:16 | PN ---
Progress Note, Physician Chief Complaint: feeling better. History of Present Illness: This is a 72 year old male with a significant past medical history of prior TIA , diabetes, hypertension,CA s/p stents, emphysema, and 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 He was evaluated by Neurology. CT head reported no acute abnormalities. He is maintained on a baby aspirin and atorvastatin. He is improved today and at baseline as per his . He was planned for a loop recorder to be implanted at [facility] by his drafter marine (Dr [place]) 07/17/18. Echo 04/22/18 nlef mild MAC/MR/TR, aortic sclerosis carotid 04/22/18 no stenoses. MRI no acute stroke - Current Medication List Current Medications: Active Medications Ascorbic Acid (Vitamin C -) 500 mg PO DAILY [facility] Last Admin: 07/09/18 10:55 Dose: 500 mg Atorvastatin Calcium (Lipitor -) 20 mg PO HS [facility] Last Admin: 07/08/18 21:52 Dose: 20 mg Cholecalciferol (Vitamin D3 -) 1,000 unit PO DAILY [facility] Last Admin: 07/09/18 10:54 Dose: 1,000 unit Clonazepam (Klonopin -) 0.5 mg PO DAILY [facility] Last Admin: 07/09/18 10:55 Dose: 0.5 mg Ferrous Sulfate (Feosol -) 325 mg PO DAILY [facility] Last Admin: 07/09/18 10:54 Dose: 325 mg Folic Acid (Folic Acid -) 1 mg PO DAILY [facility] Last Admin: 07/09/18 10:54 Dose: 1 mg Furosemide (Lasix -) 40 mg PO BID@0600,1400 [facility] Last Admin: 07/09/18 06:10 Dose: 40 mg Glimepiride (Amaryl -) 4 mg PO DAILY@0700 [facility] Last Admin: 07/09/18 06:10 Dose: 4 mg Metformin HCl (Glucophage -) 1,000 mg PO BIDAC [facility] Last Admin: 07/09/18 06:20 Dose: 1,000 mg Multivitamins (Total B With C -) 1 each PO DAILY [facility] Last Admin: 07/09/18 10:55 Dose: 1 each Nebivolol (Bystolic -) 10 mg PO DAILY [facility] Last Admin: 07/09/18 10:54 Dose: 10 mg Pantoprazole Sodium (Protonix -) 40 mg PO DAILY [facility] Last Admin: 07/09/18 10:54 Dose: 40 mg Sitagliptin Phosphate (Januvia -) 100 mg PO DAILY@0700 [facility] Last Admin: 07/09/18 06:12 Dose: 100 mg - Objective Vital Signs: Vital Signs Temperature 98 F 07/09/18 10:00 Pulse Rate 58 L 07/09/18 10:00 Respiratory Rate 20 07/09/18 10:00 Blood Pressure 116/56 L 07/09/18 10:00 O2 Sat by Pulse Oximetry (%) 100 07/09/18 09:00 Constitutional: Yes: No Distress, Calm Eyes: Yes: Conjunctiva Clear, EOM Intact HENT: Yes: Normocephalic Neck: Yes: Trachea Midline Cardiovascular: Yes: Regular Rate and Rhythm Respiratory: Yes: CTA Bilaterally Gastrointestinal: Yes: Normal Bowel Sounds, Soft Extremities: Yes: WNL Edema: No Labs: CBC, BMP 07/08/18 06:40 07/09/18 05:30 INR, PTT INR 1.34 (0.83-1.09) H 07/07/18 18:00 Assessment/Plan This is a 72 year old male with a significant past medical history of prior TIA , diabetes, hypertension,CA s/p stents, emphysema, and 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 He was evaluated by Neurology. CT head reported no acute abnormalities. He is maintained on a baby aspirin and atorvastatin. He is improved today and at baseline as per his . He was planned for a loop recorder to be implanted at [facility] by his drafter marine (Dr [place]) 07/17/18. Echo 04/22/18 nlef mild MAC/MR/TR, aortic sclerosis carotid 04/22/18 no stenoses. 1. Fluid overload--chronic diastolic CHF. -continue lasix. -no need for further testing. 2. CVA--ECG and tele negative. -needs outpatient loop recorder has appt 07/17/[address] [place]. -continue baby aspirin, consider the addition of plavix if recurrent CVA is suspected. Will defer to neurology. -Echo and carotid were negative on last admission, no need to repeat. will see as needed. dc telemetry.
[2018-07-09 15:30] VITALS: PULSE 72
--- NOTE | 2018-07-09 15:37 | PN ---
Teaching Attending Note Name of Resident: Yokasta Jerome ATTENDING PHYSICIAN STATEMENT I saw and evaluated the patient. I reviewed the resident's note and discussed the case with the resident. I agree with the resident's findings and plan as documented. SUBJECTIVE: Patient seen and eamined Followed in outpatient setting for low grde "B" cell lymphoma for 10 years. Initial diagnosis established by bone marrow biopsy. Has had lympadenopathyy and hepato-splenomegaly. Has had chronic thrombocytopenia in 50k- 70k Range. Has had neurologic events with TIA'S and infarcts. Presented with slurred speech which has improved. Has been on ASA therapy . Possibility of additional anti-platelet therapy for neurologic events is considered such that need to further delineate etiology of thrombocytopenia. Last Vital Signs Temp Pulse Resp BP Pulse Ox 97.5 F L 72 20 137/66 100 07/09/18 14:00 07/09/18 14:00 07/09/18 10:00 07/09/18 14:07/09/18 09:00 HEENT: CONSTANTIN, EOM Intact Oropharynx: No thrush, No mucositis Neck: Supple Nodes: Without adenopathy Cor: RSR, No murmurs, No gallops Lungs: diminished breath sounds bilaterally , scattered rales at bases Abd: Soft, Normal bowel sounds, No organomegaly, obese Ext:No significant edema Skin: No rashes, Integument intact CBC, BMP 07/08/18 06:40 07/09/18 05:30 Current Medications Generic Name Dose Route Start Last Admin Trade Name Freq PRN Reason Stop Dose Admin Ascorbic Acid 500 mg 07/08/18 10:00 07/09/18 10:55 Vitamin C - PO 500 mg DAILY PRISCA Administration Atorvastatin Calcium 20 mg 07/07/18 22:00 07/08/18 21:52 Lipitor - PO 20 mg HS PRISCA Administration Cholecalciferol 1,000 unit 07/08/18 10:00 07/09/18 10:54 Vitamin D3 - PO 1,000 unit DAILY PRISCA Administration Clonazepam 0.5 mg 07/08/18 10:00 07/09/18 10:55 Klonopin - PO 0.5 mg DAILY PRISCA Administration Ferrous Sulfate 325 mg 07/08/18 10:00 07/09/18 10:54 Feosol - PO 325 mg DAILY PRISCA Administration Folic Acid 1 mg 07/08/18 10:00 07/09/18 10:54 Folic Acid - PO 1 mg DAILY PRISCA Administration Furosemide 40 mg 07/08/18 14:00 07/09/18 06:10 Lasix - PO 40 mg BID@0600,1400 PRISCA Administration Glimepiride 4 mg 07/08/18 07:00 07/09/18 06:10 Amaryl - PO 4 mg DAILY@0700 PRISCA Administration Metformin HCl 1,000 mg 07/08/18 07:00 07/09/18 06:20 Glucophage - PO 1,000 mg BIDAC PRISCA Administration Multivitamins 1 each 07/08/18 10:00 07/09/18 10:55 Total B With C - PO 1 each DAILY PRISCA Administration Nebivolol 10 mg 07/08/18 10:00 07/09/18 10:54 Bystolic - PO 10 mg DAILY PRISCA Administration Pantoprazole Sodium 40 mg 07/08/18 10:00 07/09/18 10:54 Protonix - PO 40 mg DAILY PRISCA Administration Sitagliptin Phosphate 100 mg 07/08/18 07:00 07/09/18 06:12 Januvia - PO 100 mg DAILY@0700 PRISCA Administration Impression: Low grade B cell lymphoma Thrombocytopenia TIA'S, Small vessel [employer]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 OBJECTIVE: ASSESSMENT AND PLAN:
--- NOTE | 2018-07-09 16:26 | PROC ---
Bone Marrow Aspiration/Biopsy - Consent Indication: Diagnostic, To stage disease Risks and Benefits Explained: Yes Consent on Chart: Yes - Procedure Location: Right Iliac Crest Anesthesia: 1% Lidocaine Sterile Technique: Yes Specimen: Obtained Position: Other (lateral) Patient tolerated procedure: Well with minimal pain Sterile Dressing Applied: Yes
[2018-07-09 18:38] VITALS: BP 137/54; TEMP 97.9
--- NOTE | 2018-07-09 19:21 | DS ---
Physical Examination Vital Signs: Vital Signs Temperature 97.9 F 07/09/18 17:00 Pulse Rate 72 07/09/18 17:00 Respiratory Rate 20 07/09/18 17:00 Blood Pressure 137/54 L 07/09/18 17:00 O2 Sat by Pulse Oximetry (%) 100 07/09/18 09:00 Labs: CBC, BMP 07/08/18 06:40 07/09/18 05:30 Discharge Summary Reason For Visit: AMS Current Active Problems Altered mental status (Acute) Thrombocytopenia (Acute) Hospital Course: please see progress note= bone marrow biopsy done today Ct scan chest /abd/pelvis done pt stable for dc home and will follow up with Dr Palomares concerning the bone marrow biopsy results and CT results Condition: Stable - Instructions Diet, Activity, Other Instructions: Follow up for bone marrow biopsy and ct scans results with dr palomares Disposition: HOME - Home Medications Comprehensive Discharge Medication List: Ambulatory Orders Aspirin [ASA -] 81 mg PO DAILY 04/21/18 Clonazepam 0.5 mg PO DAILY 04/21/18 Folic Acid 1 mg PO DAILY 04/21/18 Furosemide [Lasix] 40 mg PO DAILY 04/21/18 Nebivolol HCl [Bystolic] 10 mg PO DAILY 04/21/18 Omeprazole 40 mg PO DAILY 04/21/18 Sitagliptin Phos/Metformin HCl [Janumet 50-1,000 mg Tablet] 1 tab PO BID Atorvastatin Ca [Lipitor] 10 mg PO HS #30 tablet 04/23/18 Ferrous Sulfate [Iron] 325 mg PO DAILY 07/07/18 Glimeperide 4 mg PO DAILY 07/07/18 Metolazone 2.5 mg PO DAILY 07/07/18 Vit C/Ascorb Sod/Multivit-Min [Emergen-C 500 mg Chewable Tab] 500 mg PO DAILY Vit D3-Vit K/Berberine/Hops [Ostera Tablet] 1 mg PO DAILY 07/07/18 Vitamin B Complex/Folic Acid [Super B Maxi Complex Caplet] 0.4 mg PO DAILY 07/07
--- NOTE | 2018-07-18 16:48 | PATH ---
Surgical Pathology Report Patient Name: POLO PADILLA Med. Rec. #: [id number] /Age/Gender: 1945 (Age: 72) / M Account: [id number] Location: 4 W TELEMETRY U Taken: 07/09/2018 Received: 07/10/2018 Reported: 07/18/2018 Physicians: Angel Miller M.D. PHYSICIAN EMERGENCY DEPT Specimen(s) Received A: BONE MARROW BIOPSY B: BONE MARROW 8 ASPIRATION SMEARS C: 2 GREEN TOPS Clinical History History of low-grade lymphoma, thrombocytopenia Final Diagnosis BONE MARROW, ASPIRATE, CORE, AND PARTICLE CLOT: LIMITED SPECIMEN WITH TRILINEAGE HEMATOPOIESIS. APPROXIMATELY 5-10% SCATTERED B-CELLS. SEE COMMENT. COMMENT: Flow cytometric analysis of the bone marrow showed a low-level light chain restricted B-cell population. Clonal CD20 positive B-cells represented 4% of WBC's and were negative for CD5 and CD10. The findings may represent either low-level involvement by a systemic B-cell lymphoproliferative disorder, or possibly indolent monoclonal B-cell lymphocytosis. Please correlate with clinical, radiographic, and other laboratory findings. BONE MARROW, ASPIRATE SMEARS: CELLULAR MARROW WITH TRILINEAGE HEMATOPOISES. SMALL POPULATION OF CD5 NEGATIVE, CD10 MEGATIVE CLONAL B-CELLS BY FLOW CYTOMETRY. SEE COMMENT. MORPHOLOGY Aspirate Smear: From flow preparation: Cellularity: Hypospiculate and hypocellular. Myeloid Precursors: Progressive maturation without increased blasts. Erythyroid Precursors: Progressive maturation. Megakaryocytes: Rare unremarkable forms. Lymphoid Cells: Mostly small and mature. Plasma Cells: Rare, mature-appearing. Iron: Decreased storage iron in rare spicules. COMPREHENSIVE FLOW PANEL [facility] [place] shows LOW-LEVEL LIGHT CHAIN-RESTRICTED B-CELL POPULATION (SEE COMMENT). COMMENT: The presence of a low-level light-chain restricted B-cell population may represent indolent monoclonal B-cell lymphocytosis or possibly minimal involvement by a systemic B-cell lymphoproliferative disorder. Correlate with clinical history and other laboratory testing for further evaluation. Cytogenetic Karyotype Analysis performed and interpreted at [place], [place] shows: Test Results: 46, XY[20] Diagnostic Interpretation: Normal Karyotype Within the limits of the cytogenetic methods, the chromosomes had normal G-banding patterns with no evidence of an acquired clonal numerical or structural abnormality. This normal result does not rule out a neoplasm. Subtle rearrangements or the presence of an aberrant clone in a low proportion of cells cannot be ruled out. Correlation with other clinical and hematologic data is suggested. Analysis was performed from an unstimulated tissue culture that was stimulated with lymphoid mitogens. See [facility] reports ([id number], [id number], [id number], [id number]) for additional details. Electronically Signed Nestor Johnson M.D. Gross Description A. Received in formalin, labeled with the patient's name and indicated on the requisition to be a bone marrow biopsy, is a 0.3 cm in length x 0.1 cm in diameter martino, cylindrical portion of bone with attached blood clot. The specimen is submitted in toto in one cassette, following decalcification B. Received are 8 bone marrow aspiration smear slides. C. Received are 2 green top tubes of bone marrow blood which are sent to [facility]. 07/10/2018 [facility]07/10/2018
[2018-07-21 10:00] LABS: IGA IMMUNOGLOBULIN 493; IGG IMMUNOGLOBULIN 1236
[2018-07-21 10:01] LABS: IGM IMMUNOGLOBULIN 99
== END 2018-07-09 20:01 | disposition home or self-care (01) | DRG 71 ==
LOC: JER 09:46 → JERBED 14:26 → J4W 07-08 02:59 → OBSVTOIN 07-08 10:25
PROVIDERS: ADMIT Internal Medicine; ATTEND Internal Medicine
PROC: 07DR3ZX Extraction of Iliac Bone Marrow, Percutaneous Approach, Diagnostic (ICD-10-PCS; principal; 2018-07-09)
DX: G93.40 Encephalopathy, unspecified (principal); G45.9 Transient cerebral ischemic attack, unspecified; C85.10 Unspecified B-cell lymphoma, unspecified site; I50.32 Chronic diastolic (congestive) heart failure; R41.82 Altered mental status, unspecified; I10 Essential (primary) hypertension; E11.9 Type 2 diabetes mellitus without complications; I25.2 Old myocardial infarction; K21.9 Gastro-esophageal reflux disease without esophagitis; K29.70 Gastritis, unspecified, without bleeding; K44.9 Diaphragmatic hernia without obstruction or gangrene; F41.9 Anxiety disorder, unspecified; D69.6 Thrombocytopenia, unspecified; R47.81 Slurred speech; I25.10 Atherosclerotic heart disease of native coronary artery without angina pectoris; E87.70 Fluid overload, unspecified; I45.10 Unspecified right bundle-branch block; R51 Headache; I48.0 Paroxysmal atrial fibrillation; R74.8 Abnormal levels of other serum enzymes; I11.0 Hypertensive heart disease with heart failure; N40.0 Benign prostatic hyperplasia without lower urinary tract symptoms; K76.0 Fatty (change of) liver, not elsewhere classified; R16.1 Splenomegaly, not elsewhere classified; Z95.5 Presence of coronary angioplasty implant and graft; Z87.891 Personal history of nicotine dependence
CPT/HCPCS: 36415; 70450-TC; 70553-TC; 71046-TC-FY; 71250-TC; 74176-TC; 76700-TC; 80048; 80053; 80307; 81003; 82550; 82553; 82784; 82962; 83735; 83880; 84100; 84155; 84165; 84484; 85025; 85027; 85610; 85651; 85730; 86140; 88300-TC; 88305-TC; 88311-TC; 88313-TC; 93005; 93010; 97116-GP; 97161-GP; 99284-25; G0378